=== PATIENT | female | born 1975 | race Caucasian/White ===

== ENCOUNTER 2017-10-30 20:58 | Inpatient (IN) | payer OTHER ==
[~2017-10-30] VITALS: Ht 160 cm; Wt 80.7 kg
--- OUTSIDE RECORDS SUMMARY | ~2017-10-30 | XMS ---
Demographics + + + | Address | [address] | | | [address] | | | [place] [address] | + + + | Preferred Language | Unknown | + + + | Marital Status | Unknown | + + + | Restoration Affiliation | Unknown | + + + | Race | Unknown | + + + | Ethnic Group | Unknown | + + + Author + + + | Author | [facility] | + + + | Organization | [facility] | + + + | Address | [address] | | | [place] [address] | + + + | Phone | | + + + Care Team Providers + + + + | Care Wet Press Tender Name | Role | Phone | + + + + Unavailable | Unavailable | + + + + PROBLEMS +---------+ + + +--------+ + + | Type | Condition | ICD9-CM | [id number] | Onset | Condition | SNOMED | | | | Code | Code | Dates | Status | Code | +---------+ + + +--------+ + + | Problem | Tobacco | | Z72.0 | | Active | 381624350 | | | use | | | | | | +---------+ + + +--------+ + + | Problem | Chronic | M54.16 | | | Active | 955655960 | | | left | | | | | | | | lumbar | | | | | | | | radiculopa | | | | | | | | thy | | | | | | +---------+ + + +--------+ + + | Problem | Obesity | | E66.9 | | Active | 682473335 | +---------+ + + +--------+ + + | Problem | Chronic | 338.4 | | | Active | 889540914 | | | pain | | | | | | | | associated | | | | | | | | with | | | | | | | | significan | | | | | | | | t | | | | | | | | psychosoci | | | | | | | | al | | | | | | | | dysfunctio | | | | | | | | n | | | | | | +---------+ + + +--------+ + + | Problem | Generalize | 300.02 | | | Active | 08241393 | | | d anxiety | | | | | | | | disorder | | | | | | +---------+ + + +--------+ + + | Problem | Bipolar | 296.40 | | | Active | 06182419 | | | affective | | | | | | | | disorder, | | | | | | | | manic | | | | | | +---------+ + + +--------+ + + | Problem | Migraine | G43.009 | | | Active | 712394360 | | | headache | | | | | | | | without | | | | | | | | aura | | | | | | +---------+ + + +--------+ + + | Problem | Peripheral | | R60.9 | | Active | 39940976 | | | edema | | | | | | +---------+ + + +--------+ + + | Problem | Sinus | I49.8 | | | Active | 19765358 | | | arrhythmia | | | | | | +---------+ + + +--------+ + + | Problem | Hepatitis | | B19.20 | | Active | 09395979 | | | C | | | | | | +---------+ + + +--------+ + + | Problem | History of | Z86.14 | | | Active | 382243317 | | | MRSA | | | | | | | | infection | | | | | | +---------+ + + +--------+ + + | Problem | History of | Z87.898 | | | Active | | | | prolonged | | | | | | | | Q-T | | | | | | | | interval | | | | | | | | on ECG | | | | | | +---------+ + + +--------+ + + | Problem | BMI | Z68.32 | | | Active | 833720233 | | | 32.0-32.9, | | | | | | | | adult | | | | | | +---------+ + + +--------+ + + ALLERGIES + + + + +--------+ | Substance | Reaction | Event Type | Date | Status | + + + + +--------+ | Compazine | anxiety | Drug Allergy | May, | Active | + + + + +--------+ | phenergan | anxiety | Drug Allergy | May, | Active | + + + + +--------+ | Zofran | anxiety | Drug Allergy | May, | Active | + + + + +--------+ | Reglan | anxiety | Drug Allergy | May, | Active | + + + + +--------+ SOCIAL HISTORY No smoking Hx information available PLAN OF CARE + +---------+ | Activity | Details | + +---------+ +---+ | | +---+ + + + | Follow Up | 2-3 months Reason:null | + + + | Pending Test | TSH | + + + | Pending Test | CBC With Differential/Platelet | + + + | Pending Test | PTT, Activated | + + + | Pending Test | Comp. Metabolic Panel (14) | + + + | Pending Test | Lipid Panel | + + + | Pending Test | Hepatitis C Genotype | + + + | Pending Test | Protime | + + + | Pending Test | Hepatitis C RNA and Quant (R-PCR) | + + + VITAL SIGNS + + + + | Height | 63 in | 2017-06-11 | + + + + | Weight | 182.6 lbs | 2017-06-11 | + + + + | BMI | 32.34 kg/m2 | 2017-06-11 | + + + + | Heart Rate | 86 /min | 2017-06-11 | + + + + | Blood pressure systolic | 110 mm Hg | 2017-06-11 | + + + + | Blood pressure diastolic | 72 mm Hg | 2017-06-11 | + + + + MEDICATIONS + + +---------+ + + + +--------+ | Medicati | Instruct | Dosage | Frequenc | Start | End Date | Duration | Status | | on | ions | | y | Date | | | | + + +---------+ + + + +--------+ | Advil | Orally | | | | | | Active | | Allergy | prn | | | | | | | | & | | | | | | | | | Congesti | | | | | | | | | on | | | | | | | | | 4-10-200 | | | | | | | | | MG | | | | | | | | + + +---------+ + + + +--------+ | Gabapent | Orally | 1 | | Mar, | | 30 | Active | | in 300 | qHS | capsule | | 2016 | | day(s) | | | MG | | | | | | | | + + +---------+ + + + +--------+ RESULTS No Results PROCEDURES + + + + + | Procedure | Date Ordered | Related Diagnosis | Body Site | + + + + + | Est Level III | Jun 11, 2017 | | | | Intermediate | | | | + + + + + | DSCHRG MED/CURRENT | Jun 11, 2017 | | | | MED MERGE | | | | + + + + + | DOC MEDS VERIFIED | Jun 11, 2017 | | | | W/PT OR RE | | | | + + + + + IMMUNIZATIONS No Known Immunizations"
--- OUTSIDE RECORDS SUMMARY | ~2017-10-30 | XMS ---
Demographics + + + | Address | [address] | | | [address] | | | [place] [address] | + + + | Preferred Language | Unknown | + + + | Marital Status | Unknown | + + + | Quaker Affiliation | Unknown | + + + | Race | Unknown | + + + | Ethnic Group | Unknown | + + + Author + + + | Author | [facility] | + + + | Organization | [facility] | + + + | Address | [address] | | | [place] [address] | + + + | Phone | | + + + Care Team Providers + + + + | Care Director Equipment Name | Role | Phone | + + + + Unavailable | Unavailable | + + + + PROBLEMS +---------+ + + +--------+ + + | Type | Condition | ICD9-CM | [id number] | Onset | Condition | SNOMED | | | | Code | Code | Dates | Status | Code | +---------+ + + +--------+ + + | Problem | Tobacco | | Z72.0 | | Active | 259422111 | | | use | | | | | | +---------+ + + +--------+ + + | Problem | Chronic | M54.16 | | | Active | 988793626 | | | left | | | | | | | | lumbar | | | | | | | | radiculopa | | | | | | | | thy | | | | | | +---------+ + + +--------+ + + | Problem | Obesity | | E66.9 | | Active | 712228300 | +---------+ + + +--------+ + + | Problem | Chronic | 338.4 | | | Active | 474121752 | | | pain | | | [...] | 300.02 | | | Active | 64912630 | | | d anxiety | | | | | | | | disorder | | | | | | +---------+ + + +--------+ + + | Problem | Bipolar | 296.40 | | | Active | 92489639 | | | affective | | | | | | | | disorder, | | | | | | | | manic | | | | | | +---------+ + + +--------+ + + | Problem | Migraine | G43.009 | | | Active | 044561339 | | | headache | | | | | | | | without | | | | | | | | aura | | | | | | +---------+ + + +--------+ + + | Problem | Peripheral | | R60.9 | | Active | 04015355 | | | edema | | | | | | +---------+ + + +--------+ + + | Problem | Sinus | I49.8 | | | Active | 19413862 | | | arrhythmia | | | | | | +---------+ + + +--------+ + + | Problem | Hepatitis | | B19.20 | | Active | 92383134 | | | C | | | | | | +---------+ + + +--------+ + + | Problem | History of | Z86.14 | | | Active | 317864535 | | | MRSA | | | [...] | Z68.32 | | | Active | 566218667 | | | 32.0-32.9, | | | | | | | | adult | | | | | | +---------+ + + +--------+ + + ALLERGIES Unknown Allergies SOCIAL HISTORY No smoking Hx information available PLAN OF CARE VITAL SIGNS MEDICATIONS Unknown Medications RESULTS No Results PROCEDURES No Known procedures IMMUNIZATIONS No Known Immunizations"
--- OUTSIDE RECORDS SUMMARY | ~2017-10-30 | XMS ---
Demographics + + + | Address | [address] | | | [address] | | | [place] [address] | + + + | Preferred Language | Unknown | + + + | Marital Status | Unknown | + + + | Zoroastrian Affiliation | Unknown | + + + | Race | Unknown | + + + | Ethnic Group | Unknown | + + + Author + + + | Author | [facility] | + + + | Organization | [facility] | + + + | Address | [address] | | | [place] [address] | + + + | Phone | | + + + Care Team Providers + + + + | Care Meat Wrapper Name | Role | Phone | + + + + Unavailable | Unavailable | + + + + PROBLEMS +---------+ + + +--------+ + + | Type | Condition | ICD9-CM | [id number] | Onset | Condition | SNOMED | | | | Code | Code | Dates | Status | Code | +---------+ + + +--------+ + + | Problem | Bipolar | 296.40 | | | Active | 19218761 | | | affective | | | | | | | | disorder, | | | | | | | | manic | | | | | | +---------+ + + +--------+ + + | Problem | Tobacco | | Z72.0 | | Active | 175074040 | | | use | | | | | | +---------+ + + +--------+ + + | Problem | Migraine | G43.009 | | | Active | 042799716 | | | headache | | | | | | | | without | | | | | | | | aura | | | | | | +---------+ + + +--------+ + + | Problem | Chronic | 338.4 | | | Active | 790638778 | | | pain | | | [...] | 300.02 | | | Active | 63438221 | | | d anxiety | | [...] | Z68.32 | | | Active | 620635272 | | | 32.0-32.9, | | | | | | | | adult | | | | | | +---------+ + + +--------+ + + | Problem | Chronic | M54.16 | | | Active | 515361063 | | | left | | | | | | | | lumbar | | | | | | | | radiculopa | | | | | | | | thy | | | | | | +---------+ + + +--------+ + + | Problem | Obesity | | E66.9 | | Active | 235665545 | +---------+ + + +--------+ + + | Problem | Hepatitis | | B19.20 | | Active | 80463004 | | | C | | | | | | +---------+ + + +--------+ + + | Problem | History of | Z86.14 | | | Active | 449981910 | | | MRSA | | | | | | | | infection | | | | | | +---------+ + + +--------+ + + ALLERGIES + + + + +--------+ | Substance | Reaction | Event Type | Date | Status | + + + + +--------+ | Compazine | anxiety | Drug Allergy | Mar, | Active | + + + + +--------+ | phenergan | anxiety | Drug Allergy | Mar, | Active | + + + + +--------+ | Zofran | anxiety | Drug Allergy | Mar, | Active | + + + + +--------+ | Reglan | anxiety | Drug Allergy | Mar, | Active | + + + + +--------+ SOCIAL HISTORY No smoking Hx information available PLAN OF CARE + +---------+ | Activity | Details | + +---------+ +---+ | | +---+ + + + | Follow Up | 04/15 Reason:null | + + + VITAL SIGNS + + + + | Height | 63 in | 2017-04-09 | + + + + | Weight | 181.0 lbs | 2017-04-09 | + + + + | BMI | 32.06 kg/m2 | 2017-04-09 | + + + + | Temperature | 98.2 degrees Fahrenheit | 2017-04-09 | + + + + | Heart Rate | 89 /min | 2017-04-09 | + + + + | Blood pressure systolic | 122 mm Hg | 2017-04-09 | + + + + | Blood pressure diastolic | 84 mm Hg | 2017-04-09 | + + + + MEDICATIONS + + + + + + + +--------+ | Medicati | Instruct | Dosage | Frequenc | Start | End Date | Duration | Status | | on | ions | | y | Date | | | | + + + + + + + +--------+ | Rabies | Intramus | as | | | | | Active | | Vaccine, | cular #3 | directed | | | | | | | PCEC - | dose | | | | | | | + + + + + + + +--------+ | Bactrim | Orally | 1 tablet | 12h | 12 Cam, | 22 Cam, | 10 | Active | | DS | every 12 | | | 2016 | 2016 | day(s) | | | 800-160 | hrs | | | | | | | | MG | | | | | | | | + + + + + + + +--------+ | Metronid | Orally | 1 tablet | 12h | 16 Mar, | Mar, | 7 day(s) | Active | | azole | bid | | | 2016 | 2016 | | | | 500 MG | | | | | | | | + + + + + + + +--------+ | Diflucan | Orally | 1 tablet | | | | 1 days | Active | | 150 MG | Once, | | | | | | | | | repeat | | | | | | | | | in 3 | | | | | | | | | days | | | | | | | + + + + + + + +--------+ | Hydrocod | Orally | 1 tablet | | 08 Mar, | 17 Mar, | 5 days | Active | | one-Acet | TID PRN | | | 2016 | 2016 | | | | aminophe | severe | | | | | | | | n 5-325 | pain | | | | | | | | MG | | | | | | | | + + + + + + + +--------+ | Advil | [...] | | | | | + + + + + + + +--------+ RESULTS No Results PROCEDURES + + + + + | Procedure | Date Ordered | Related Diagnosis | Body Site | + + + + + | Rabies, | April 09, 2017 | | | | intramuscular | | | | + + + + + | Est Level II | April 09, 2017 | | | | Limited | | | | + + + + + | DOC MEDS VERIFIED | April 09, 2017 | | | | W/PT OR RE | | | | + + + + + | DSCHRG MED/CURRENT | April 09, 2017 | | | | MED MERGE | | | | + + + + + IMMUNIZATIONS + + + + + | Vaccine | Route | Administration Date | Status | + + + + + | Rabies, | IM Intramuscular | April 09, 2017 | Administered | | intramuscular | | | | + + + + +"
--- OUTSIDE RECORDS SUMMARY | ~2017-10-30 | XMS ---
Demographics + + + | Address | [address] | | | [address] | | | [place] [address] | + + + | Preferred Language [...] | + + + | Organization | [facility] | + + + | Address | [address] | | | [place] [address] | + + + | Phone | | + + + Care Team Providers + + + + | Care Preparation Plant Repairer Name | Role | Phone | + + + + Unavailable | Unavailable | + + + + PROBLEMS +---------+ + + +--------+ + + | Type | Condition | ICD9-CM | [id number] | Onset | Condition | SNOMED | | | | Code | Code | Dates | Status | Code | +---------+ + + +--------+ + + | Problem | Tobacco | | Z72.0 | | Active | 937706101 | | | use | | | | | | +---------+ + + +--------+ + + | Problem | Chronic | M54.16 | | | Active | 333701269 | | | left | | | | | | | | lumbar | | | | | | | | radiculopa | | | | | | | | thy | | | | | | +---------+ + + +--------+ + + | Problem | Obesity | | E66.9 | | Active | 306676068 | +---------+ + + +--------+ + + | Problem | Chronic | 338.4 | | | Active | 461927310 | | | pain | | | [...] | 300.02 | | | Active | 29379686 | | | d anxiety | | | | | | | | disorder | | | | | | +---------+ + + +--------+ + + | Problem | Bipolar | 296.40 | | | Active | 54943525 | | | affective | | | | | | | | disorder, | | | | | | | | manic | | | | | | +---------+ + + +--------+ + + | Problem | Migraine | G43.009 | | | Active | 059232607 | | | headache | | | | | | | | without | | | | | | | | aura | | | | | | +---------+ + + +--------+ + + | Problem | Peripheral | | R60.9 | | Active | 81647475 | | | edema | | | | | | +---------+ + + +--------+ + + | Problem | Sinus | I49.8 | | | Active | 16240977 | | | arrhythmia | | | | | | +---------+ + + +--------+ + + | Problem | Hepatitis | | B19.20 | | Active | 66440061 | | | C | | | | | | +---------+ + + +--------+ + + | Problem | History of | Z86.14 | | | Active | 803833150 | | | MRSA | | | [...] | Z68.32 | | | Active | 840565690 | | | 32.0-32.9, | | | | | | | | adult | | | | | | +---------+ + + +--------+ + + ALLERGIES Unknown Allergies SOCIAL HISTORY No smoking Hx information available PLAN OF CARE VITAL SIGNS MEDICATIONS Unknown Medications RESULTS No Results PROCEDURES No Known procedures IMMUNIZATIONS No Known Immunizations"
--- OUTSIDE RECORDS SUMMARY | ~2017-10-30 | XMS ---
Demographics + + + | Address | [address] | | | [address] | | | [place] [address] | + + + | Preferred Language | Unknown | + + + | Marital Status | Unknown | + + + | Druze Affiliation | Unknown | + + + | Race | Unknown | + + + | Ethnic Group | Unknown | + + + Author + + + | Author | [facility] | + + + | Organization | [facility] | + + + | Address | [address] | | | [place] [address] | + + + | Phone | | + + + Care Team Providers + + + + | Care Folder And Notcher Name | Role | Phone | + + + + Unavailable | Unavailable | + + + + PROBLEMS +---------+ + + +--------+ + + | Type | Condition | ICD9-CM | [id number] | Onset | Condition | SNOMED | | | | Code | Code | Dates | Status | Code | +---------+ + + +--------+ + + | Problem | Bipolar | 296.40 | | | Active | 59533504 | | | affective | | | | | | | | disorder, | | | | | | | | manic | | | | | | +---------+ + + +--------+ + + | Problem | Tobacco | | Z72.0 | | Active | 070409411 | | | use | | | | | | +---------+ + + +--------+ + + | Problem | Migraine | G43.009 | | | Active | 525172717 | | | headache | | | | | | | | without | | | | | | | | aura | | | | | | +---------+ + + +--------+ + + | Problem | Chronic | 338.4 | | | Active | 647554757 | | | pain | | | [...] | 300.02 | | | Active | 91238641 | | | d anxiety | | [...] | Z68.32 | | | Active | 923905736 | | | 32.0-32.9, | | | | | | | | adult | | | | | | +---------+ + + +--------+ + + | Problem | Chronic | M54.16 | | | Active | 745400583 | | | left | | | | | | | | lumbar | | | | | | | | radiculopa | | | | | | | | thy | | | | | | +---------+ + + +--------+ + + | Problem | Obesity | | E66.9 | | Active | 179042558 | +---------+ + + +--------+ + + | Problem | Hepatitis | | B19.20 | | Active | 28879465 | | | C | | | | | | +---------+ + + +--------+ + + | Problem | History of | Z86.14 | | | Active | 767050126 | | | MRSA | | | [...] + + + | Follow Up | prn Reason:null | + + + VITAL SIGNS + + + + | Height | 63 in | 2017-04-15 | + + + + | Weight | 180.8 lbs | 2017-04-15 | + + + + | BMI | 32.02 kg/m2 | 2017-04-15 | + + + + | Temperature | 98.7 degrees Fahrenheit | 2017-04-15 | + + + + | Heart Rate | 87 /min | 2017-04-15 | + + + + | Blood pressure systolic | 115 mm Hg | 2017-04-15 | + + + + | Blood pressure diastolic | 78 mm Hg | 2017-04-15 | + + + + MEDICATIONS + [...] every 12 | | | 2016 | 2017 | day(s) | | | 800-160 | hrs | | | | | | | | MG | | | | | | | | + + + + + + + +--------+ | Metronid | Orally | 1 tablet | 12h | 16 Cam, | Mar, | 7 day(s) | Active [...] | Intramus | as | | | Mar, | NOW | Active | | Vaccine, | cular #4 | directed | | | 2016 | | | | PCEC - | [...] + + + | Rabies, | April 15, 2017 | | | | intramuscular | | | | + + + + + | Est Level III | April 15, 2017 | | | | Intermediate | | | | + + + + + | DOC MEDS VERIFIED | April 15, 2017 | | | | W/PT OR RE | | | | + + + + + | DSCHRG MED/CURRENT | April 15, 2017 | | | | MED MERGE | | | | + + + + + IMMUNIZATIONS + + + + + | Vaccine | Route | Administration Date | Status | + + + + + | Rabies, | IM Intramuscular | April 15, 2017 | Administered | | intramuscular | | | | + + + + +"
--- OUTSIDE RECORDS SUMMARY | ~2017-10-30 | XMS ---
Demographics + + + | Address | [address] | | | [address] | | | [place] [address] | + + + | Preferred Language | Unknown | + + + | Marital Status | Unknown | + + + | Jew Affiliation | Unknown | + + + | Race | Unknown | + + + | Ethnic Group | Unknown | + + + Author + + + | Author | [facility] | + + + | Organization | [facility] | + + + | Address | [address] | | | [place] [address] | + + + | Phone | | + + + Care Team Providers + + + + | Care Foreclosure Field Inspector Name | Role | Phone | + + + + Unavailable | Unavailable | + + + + PROBLEMS +---------+ + + +--------+ + + | Type | Condition | ICD9-CM | [id number] | Onset | Condition | SNOMED | | | | Code | Code | Dates | Status | Code | +---------+ + + +--------+ + + | Problem | Bipolar | 296.40 | | | Active | 83870156 | | | affective | | | | | | | | disorder, | | | | | | | | manic | | | | | | +---------+ + + +--------+ + + | Problem | Tobacco | | Z72.0 | | Active | 677370854 | | | use | | | | | | +---------+ + + +--------+ + + | Problem | Migraine | G43.009 | | | Active | 334083408 | | | headache | | | | | | | | without | | | | | | | | aura | | | | | | +---------+ + + +--------+ + + | Problem | Chronic | 338.4 | | | Active | 159077676 | | | pain | | | [...] | 300.02 | | | Active | 06762272 | | | d anxiety | | [...] | Z68.32 | | | Active | 192705085 | | | 32.0-32.9, | | | | | | | | adult | | | | | | +---------+ + + +--------+ + + | Problem | Chronic | M54.16 | | | Active | 028631168 | | | left | | | | | | | | lumbar | | | | | | | | radiculopa | | | | | | | | thy | | | | | | +---------+ + + +--------+ + + | Problem | Obesity | | E66.9 | | Active | 365892654 | +---------+ + + +--------+ + + | Problem | Hepatitis | | B19.20 | | Active | 01969457 | | | C | | | | | | +---------+ + + +--------+ + + | Problem | History of | Z86.14 | | | Active | 978753110 | | | MRSA | | | [...] + + + | Follow Up | 4 Weeks Reason:null | + + + | Pending Test | EKG | + + + VITAL SIGNS + + + + | Height | 63 in | 2017-03-31 | + + + + | Weight | 182.2 lbs | 2017-03-31 | + + + + | BMI | 32.27 kg/m2 | 2017-03-31 | + + + + | Temperature | 97.7 degrees Fahrenheit | 2017-03-31 | + + + + | Heart Rate | 103 /min | 2017-03-31 | + + + + | Blood pressure systolic | 128 mm Hg | 2017-03-31 | + + + + | Blood pressure diastolic | 69 mm Hg | 2017-03-31 | + + + + MEDICATIONS + + + + + + + +--------+ | Medicati | Instruct | Dosage | Frequenc | Start | End Date | Duration | Status | | on | ions | | y | Date | | | | + + + + + + + +--------+ | Nicoderm | Transder | 1 patch | 24h | 10 February, | 7 Mar, | 28 days | Active | | CQ 7 | mal Once | to skin | | 2016 | 2016 | | | | MG/24HR | a day | | | | | | | + + + + + + + +--------+ | Advil | | | | | | | Active | | Allergy | | | | | | | [...] + + + + + +--------+ | Gabapent | Orally | 1 | | 07 Mar, | | 30 | Active | | in 300 | qHS | capsule | | 2016 | | day(s) | | | MG | | | | | | | | + + + + + + + +--------+ | Nicoderm | Transder | 1 patch | 24h | | 7 Mar, | 28 | Active | | CQ 21 | mal Once | to skin | | | 2016 | day(s) | | | MG/24HR | a day | | | | | | | + + + + + + + +--------+ | Nicoderm | Transder | 1 patch | 24h | 10 February, | 7 Mar, | 28 days | Active | | CQ 14 | mal Once | to skin | | 2016 | 2016 | | | | MG/24HR | a day | | | | | | | + + + + + + + +--------+ RESULTS No Results PROCEDURES + + + + + | Procedure | Date Ordered | Related Diagnosis | Body Site | + + + + + | Est Level III | March 31, 2017 | | | | Intermediate | | | | + + + + + | DSCHRG MED/CURRENT | March 31, 2017 | | | | MED MERGE | | | | + + + + + | DOC MEDS VERIFIED | March 31, 2017 | | | | W/PT OR RE | | | | + + + + + IMMUNIZATIONS No Known Immunizations"
--- OUTSIDE RECORDS SUMMARY | ~2017-10-30 | XMS ---
Demographics + + + | Address | [address] | | | [address] | | | [place] [address] | + + + | Preferred Language | Unknown | + + + | Marital Status | Unknown | + + + | Buddhist Affiliation | Unknown | + + + | Race | Unknown | + + + | Ethnic Group | Unknown | + + + Author + + + | Author | [facility] | + + + | Organization | [facility] | + + + | Address | [address] | | | [place] [address] | + + + | Phone | | + + + Care Team Providers + + + + | Care Sewer And Inspector Name | Role | Phone | + + + + Unavailable | Unavailable | + + + + PROBLEMS +---------+ + + +--------+ + + | Type | Condition | ICD9-CM | [id number] | Onset | Condition | SNOMED | | | | Code | Code | Dates | Status | Code | +---------+ + + +--------+ + + | Problem | Tobacco | | Z72.0 | | Active | 557871946 | | | use | | | | | | +---------+ + + +--------+ + + | Problem | Chronic | M54.16 | | | Active | 001094330 | | | left | | | | | | | | lumbar | | | | | | | | radiculopa | | | | | | | | thy | | | | | | +---------+ + + +--------+ + + | Problem | Obesity | | E66.9 | | Active | 901349936 | +---------+ + + +--------+ + + | Problem | Chronic | 338.4 | | | Active | 107315150 | | | pain | | | [...] | 300.02 | | | Active | 62385813 | | | d anxiety | | | | | | | | disorder | | | | | | +---------+ + + +--------+ + + | Problem | Bipolar | 296.40 | | | Active | 55557642 | | | affective | | | | | | | | disorder, | | | | | | | | manic | | | | | | +---------+ + + +--------+ + + | Problem | Migraine | G43.009 | | | Active | 178327780 | | | headache | | | | | | | | without | | | | | | | | aura | | | | | | +---------+ + + +--------+ + + | Problem | Peripheral | | R60.9 | | Active | 48159810 | | | edema | | | | | | +---------+ + + +--------+ + + | Problem | Sinus | I49.8 | | | Active | [id number] | | | arrhythmia | | | | | | +---------+ + + +--------+ + + | Problem | Hepatitis | | B19.20 | | Active | [id number] | | | C | | | | | | +---------+ + + +--------+ + + | Problem | History of | Z86.14 | | | Active | [id number] | | | MRSA | | | [...] | Z68.32 | | | Active | [id number] | | | 32.0-32.9, | | | | | | | | adult | | | | | | +---------+ + + +--------+ + + ALLERGIES Unknown Allergies SOCIAL HISTORY No smoking Hx information available PLAN OF CARE VITAL SIGNS MEDICATIONS Unknown Medications RESULTS No Results PROCEDURES No Known procedures IMMUNIZATIONS No Known Immunizations"
--- OUTSIDE RECORDS SUMMARY | ~2017-10-30 | XMS ---
Demographics + + + | Address | [address] | | | [address] | | | [place] [address] | + + + | Preferred Language | Unknown | + + + | Marital Status | Unknown | + + + | Yarsanism Affiliation | Unknown | + + + | Race | Unknown | + + + | Ethnic Group | Unknown | + + + Author + + + | Author | [facility] | + + + | Organization | [facility] | + + + | Address | [address] | | | [place] [address] | + + + | Phone | | + + + Care Team Providers + + + + | Care Market Development Specialist Name | Role | Phone | + + + + Unavailable | Unavailable | + + + + PROBLEMS +---------+ + + +--------+ + + | Type | Condition | ICD9-CM | [id number] | Onset | Condition | SNOMED | | | | Code | Code | Dates | Status | Code | +---------+ + + +--------+ + + | Problem | Bipolar | 296.40 | | | Active | [id number] | | | affective | | | | | | | | disorder, | | | | | | | | manic | | | | | | +---------+ + + +--------+ + + | Problem | Tobacco | | Z72.0 | | Active | [id number] | | | use | | | | | | +---------+ + + +--------+ + + | Problem | Migraine | G43.009 | | | Active | [id number] | | | headache | | | | | | | | without | | | | | | | | aura | | | | | | +---------+ + + +--------+ + + | Problem | Chronic | 338.4 | | | Active | 131494835 | | | pain | | | [...] | 300.02 | | | Active | 57074188 | | | d anxiety | | [...] | Z68.32 | | | Active | 361544648 | | | 32.0-32.9, | | | | | | | | adult | | | | | | +---------+ + + +--------+ + + | Problem | Chronic | M54.16 | | | Active | [id number] | | | left | | | | | | | | lumbar | | | | | | | | radiculopa | | | | | | | | thy | | | | | | +---------+ + + +--------+ + + | Problem | Obesity | | E66.9 | | Active | [id number] | +---------+ + + +--------+ + + | Problem | Hepatitis | | B19.20 | | Active | 70241356 | | | C | | | | | | +---------+ + + +--------+ + + | Problem | History of | Z86.14 | | | Active | [id number] | | | MRSA | | | | | | | | infection | | | | | | +---------+ + + +--------+ + + ALLERGIES Unknown Allergies SOCIAL HISTORY No smoking Hx information available PLAN OF CARE + +---------+ | Activity | Details | + +---------+ +---+ | | +---+ + + + | Follow Up | 04/04/17 Reason:null | + + + VITAL SIGNS + + + + | Height | 63 in | 2017-04-01 | + + + + | Weight | 180.8 lbs | 2017-04-01 | + + + + | BMI | 32.02 kg/m2 | 2017-04-01 | + + + + | Temperature | 97.4 degrees Fahrenheit | 2017-04-01 | + + + + | Heart Rate | 73 /min | 2017-04-01 | + + + + | Blood pressure systolic | 116 mm Hg | 2017-04-01 | + + + + | Blood pressure diastolic | 75 mm Hg | 2017-04-01 | + + + + MEDICATIONS + + + + + + + +--------+ | Medicati | Instruct | Dosage | Frequenc | Start | End Date | Duration | Status | | on | ions | | y | Date | | | | + + + + + + + +--------+ | Gabapent | Orally | 1 | | 07 Cam, | | 30 | Active | | in 300 | qHS | capsule | | 2017 | | day(s) | | | MG | | | | | | | | + + + + + + + +--------+ | Hydrocod | Orally | 1 tablet | | Mar, | 11 Cam, | 3 days | Active | | one-Acet | [...] | + + + + + | Rabies Immune | April 01, 2017 | | | | Globlin | | | | + + + + + | Rabies, | April 01, 2017 | | | | intramuscular | | | | + + + + + | [facility] MED/CURRENT | April 01, 2017 | | | | MED MERGE | | | | + + + + + | Est Level III | April 01, 2017 | | | | Intermediate | | | | + + + + + | DOC MEDS VERIFIED | April 01, 2017 | | | | W/PT OR RE | | | | + + + + + IMMUNIZATIONS + + + + + | Vaccine | Route | Administration Date | Status | + + + + + | Rabies, | IM Intramuscular | April 01, 2017 | Administered | | intramuscular | | | | + + + + + | Rabies Immune | IM Intramuscular | April 01, 2017 | Administered | | Globlin | | | | + + + + +"
[~2017-10-30 20:58] MED LIST: ADVIL100 MG PO; AUGMENTIN 875-1 EACH PO; CEPHALEXIN500 MG PO; DICLOFENAC SODI75 MG PO; DOXYCYCLINE HY100 MG PO; KEFLEX500 MG PO; KLONOPIN1 MG PO; NEURONTIN800 MG PO; PAXIL40 MG PO; PREDNISONE20 MG PO; PROVENTIL HFA6.7 GM INH; SUDAFED 12 HOU120 MG PO; TRAZODONE HCL150 MG PO
--- NOTE | 2017-10-31 02:00 | NUR ---
PATIENT TO FLOOR VIA GURNEY FROM ED. PATIENT TRANSFERED TO BED WITH SBA. REPORTS 6/10 PAIN IN RUQ OF ABD, PRN MORHPINE GIVEN. DENIES FURTHER NEEDS AT THIS TIME. ADMIT, ASSESSMENT, VITALS DONE. ORIENTED PATIENT TO ROOM, INSTRUCTED HOW TO USE CALL LIGHT. CALL LIGHT WITHIN REACH. ALL ORDERS IN PLACE.
--- NOTE | 2017-10-31 02:05 | NUR ---
42YR OLD WOMAN ADMITTED FROM ER VIA STRETCHER TO ROOM 122, PT IS ALERT, ORIENTED, SL X2 TAPED SECURELY, ORIENTED TO ROOM AND CALL LIGHT, ORDERS NOTED.
--- NOTE | 2017-10-31 04:20 | NUR ---
PATIENT RESTING COMFORTABLY IN BED, BREATHING IS EVEN AND UNLABORED. RESPIRATORY RATE IS 16/MIN. FLACC SCORE OF 0, NO SIGNS OF DISTRESS. CALL LIGHT WITHIN REACH. ALL ORDERS IN PLACE.
--- NOTE | 2017-10-31 06:39 | NUR ---
AWAKE, SBA INTO BATHROOM TO VOID, DENIES NAUSEA BUT C/O INCREASING PAIN IN RUQ. MORPHINE 4MG IV GIVEN. IVF PATENT. REMAINS NPO. CALL LIGHT IN EASY REACH.
--- NOTE | 2017-10-31 07:00 | NUR ---
HANDOFF REPORT RECEIVED FROM PLACEMENT COORDINATOR RN.
--- NOTE | 2017-10-31 07:44 | NUR ---
PATENT WAS SLEEPING, SHE DIDNT WAKE UP, SO I LET HER SLEEP.
--- NOTE | 2017-10-31 08:35 | NUR ---
PT RESTING IN BED. PT COMPLAINT OF PAIN /, REQUESTING PAIN MEDICATION, GIVEN 4 MG IV MORPHINE PER ORDER. PT COMPLAINT OF DRY MOUTH, PROVIDED MOUTH SWABS AND CHAPSTICK. PT DENIES NAUSEA, BOWEL TONES ACTIVE. PT ON ROOM AIR, LUNG SOUNDS CLEAR. SCDS IN PLACE, CMS INTACT. PT ASKING QUESTIONS ABOUT SURGERY, DISCUSSED PLAN OF CARE. IV FLUIDS INFUSING LR AT 125 ML/HR. PT NPO. PT DENIES OTHER NEEDS AT THIS TIME.
--- NOTE | 2017-10-31 09:45 | NUR ---
PT RESTIGN IN BED. RATING PAIN 5/10. PT DENIES NEEDS AT THIS TIME.
--- NOTE | 2017-10-31 12:49 | NUR ---
PT SLEEPING, LEFT UNDISTURBED.
--- NOTE | 2017-10-31 13:21 | NUR ---
PT AWAKE, REQUESTING PAIN MEDICATION, RATING PAIN 6-7/10 TO ABD. GIVEN 4 MG IV MORPHINE. PT ON ROOM AIR, LUNG SOUNDS CLEAR. PT HYPOTENSIVE, STSTOLIC BP 91, PT STATES SHE NORMALLY HAS LOW BP. BOWEL TONES ACTIVE. PT DENIES OTHER NEEDS AT THIS TIME.
--- NOTE | 2017-10-31 14:30 | NUR ---
MD TO BEDSIDE TO EVALUATE PT. PLAN FOR SURGERY THIS AFTERNOON.
--- NOTE | 2017-10-31 14:36 | NUR ---
PT WAS PREPPED FOR GALLBLADDER SURGERY, AND DID THE DEMETRI MORROW
--- NOTE | 2017-10-31 15:02 | NUR ---
PATIENT TO SURGERY, REPORT GIVEN TO DOYLE, OR NURSE. UPDATED PRIMARY CARE NURSE SMOOTH.
--- NOTE | 2017-10-31 16:24 | NUR ---
10/31/17 1624 Teresa Reina 1620: PT WAKES QUICKLY AND PULLS OXYGEN MASK OFF HER FACE. ORAL AIRWAY IS REMOVED. 1623: SNORING HEARD WHEN SLEEPING. PT REMOVES OXYGEN MASK AND IS SCRATCHING HER NOSE. PT REASSURES EASILY.
[2017-10-31] MEDS ORDERED: NORCO 5-325 TA1 EACH PO (16:25)
[2017-10-31] MEDS ORDERED: MOTRIN IB200 MG PO (16:25)
[2017-10-31] MEDS ORDERED: TYLENOL325 MG PO (16:26)
[2017-10-31] MEDS ORDERED: NICODERM CQ1 EAC1 TD (16:27)
--- NOTE | 2017-10-31 17:40 | NUR ---
PT RECEIVED FROM PACU AT 1715. PT TRANSFERED SELF TO BED. PT COMPLAINT OPF PAIN, CRYING, STATING "IT HURTS SO BAD". VSS. PT ON 2L NC, O2 SATS 100%, LUNG SOUNDS CLEAR. PT GIVEN 4 MG IV MORPHINE. BOWEL TONES HYPOACTIVE, DENIES NAUSEA. LAP SITE X4 WITH SMALL AMOUNT OF BLOODY DRAINAGE. CMS INTACT, WITHOUT EDEMA. SCDS IN PLACE. LR INFUSING AT 125 ML/HR. PT ASSISTED WITH ORDERING SMALL DINNER. DISCUSSED PAIN MANAGEMENT WITH PT. FAMILY AT BEDSIDE.
--- NOTE | 2017-10-31 18:18 | NUR ---
PT AGITATED, ANXIOUS. PT COMPLAINT OF PAIN TO ABD, RATING PAIN SEVERE, GIVEN 4MG IV MORPHINE. FAMILY AT BEDSIDE, CONSOLING PT. ICE PACK PROVIVED, PT REFUSING STATING "I DONT NEED IT". PT O2 CHE 97% ON 1L, WEANED TO ROOM AIR.
--- NOTE | 2017-10-31 18:24 | NUR ---
PT WENT FOR LAP ROSEMARIE THIS AFTERNOON. PT ON ROOM AIR, LUNG SOUNDS CLEAR, O2 SATS AT 97%. PT BOWEL TONES HYPOACTIVE, DENIES NAUSEA, ATTEMPTED SMALL DINNER. PT CONSISTENTLY RATING PAIN HIGH, GIVEN 4 MG IV MORPHINE X2 SINCE ARRIVING TO FLOOR. IV FLUIDS INFUSING AT LR AT 125 ML/HR. LAP SITE X4 WITH SMALL AMOUNT OF BLOODY DRAINAGE. SCDS IN PLACE.
--- NOTE | 2017-10-31 18:45 | NUR ---
CALLED, RETURNING CALL FROM MESSAGE. PROVIDED UPDATE THAT PT WOULD NOT BE DISCHARGING THIS EVENING DUE TO PAIN AND ANXIETY, DISCUSSED PT CONCERN THAT NORCO WOULD NOT PROVIDE SUFFICIENT PAIN RELIEF. TELEPHONE ORDER TO CHANGE NORCO TO PERCOCET 7.5/325MG 1-2 TAB Q4H PRN FOR PAIN AND TO ADD 1MG IV ATIVAN Q4H PRN FOR ANXIETY, RBVO.
--- NOTE | 2017-10-31 19:10 | NUR ---
PT COMPLAINT OF PAIN, REQUESTING PAIN MEDICATION, GIVEN 1 TAB PERCOCET, AND 600 MG IBUPROFEN. ICE PACK APPLIED TO ABD, PT ENCOURAGED TO CONTIUE BRACING. PT ANXIOUS, PROVIDED 1 MG IV ATIVAN PER ORDER. DISCUSSED PAIN MANAGEMEN. VSS. LAP SITES WITH STERISTRIPS INTACT, SMALL AMOUNT OF BLOODY DRAINAGE, UNCHANGED FROM PREVIOUS ASSESSMENT. PT BOWEL TONES HYPOACTIVE, DENIES NAUSEA, TOLERATING REGULAR DIET.
--- NOTE | 2017-10-31 19:10 | NUR ---
BEDSIDE REPORT RECEIVED FROM OFFGOING RN. MEDICATIONS ADMINISTERED PER PREVIOUS RN NOTE. PT'S FRIEND AT BEDSIDE. PT AGREES TO CALL FOR FURTHER NEEDS.
--- NOTE | 2017-10-31 20:44 | NUR ---
MID LEVEL PRACTITIONER INFORMS EMPLOYEE DEVELOPMENT MANAGER THAT BLOOD PRESENT ON PT'S GOWN. SMALL AMOUNT OF SNAGUINEOUS DRAINAGE PRESENT TO PT'S GOWN, STERI STRIPS DISPLACED FROM INCISION, AND SMALL AMOUNT OF BLOOD DRIED TO PT'S LOWER ABDOMEN BELOW LAP SITE. PT IS VERY ANXIOUS ABOUT BLEEDING, ASKING "IS EVERYTHING OK, IS IT OPEN? IS IT GOING TO HERNIATE?" PT REASSURED. NEW STERISTRIPS PLACED TO LAP SITE, GAUZE PLACED OVER WITH FOAM TAPE, PT TOLERATED WELL. PT UP TO USE BATHROOM, SPLINTS ABD APPROPRIATELY. RATES PIAN 7/10 TO ABD AFTER GETTING TO BATHROOM, STATES "IT HURTS SO BAD". PT STATES SHE THINKS HER FINGER WENT "INTO" HER RLQ LAP SITE. SITE ASSESSED, NO NEW DRAINAGE, NO S/SX OF LAP SITE OPENED. STERI STRIP DISPLACED X 1, REPLACED. PT AGAIN REASSURED. PT ASSESSMENT COMPLETE. BT'S HYPOACTIVE, ABD REMAINS TENDER. PRN PERCOCET X 1 TAB ADMINISTERED FOR PAIN. PT DROWSY, FALLING ASLEEP DURING CONVERSATION POST ASSESSMENT. SAO2 93%, RR 20. CALL LIGHT WITHIN PT'S REACH.
--- NOTE | 2017-10-31 21:36 | NUR ---
IV FLUIDS COMPLETE, HUNG NEW BAG. PT WITH EYES CLOSED,SLIGHT SNORING. O2 PER PULSE OX READING 90 WITH HEART RATE OF 90, ON ROOM AIR. CALL STORY WITHIN REACH.
--- NOTE | 2017-10-31 22:18 | NUR ---
PT RESTING IN BED WITH EYES CLOSED. RESPIRATIONS EVEN AND UNLABORED, RR 20, SA02 93%, NO S/SX OF DISTRESS NOTED. CALL LIGHT WITHIN PT REACH.
--- NOTE | 2017-11-01 00:45 | NUR ---
PT UP TO USE THE BATHROOM WITH CORRECTIONAL SUPERVISOR ASSISTANCE, REPORTS INCREASED PAIN. PT RATES PAIN 7/10. PRN PERCOCET ADMINISTERED. PT REPORTS NAUSEA, REQUESTS BENADRYL. INFORMED PT THAT BENADRYL IS NOT AVAILABLE, ASSESSED WHETHER PT BELIEVES THAT NAUSEA IS BEING BROUGHT ON BY PAIN. SHE STATES, "I'M NOT SURE". DISCUSSION WITH PT ABOUT LETTING PAIN PILL KICK IN TO SEE IF NAUSEA IS CONTROLLED. PT STATES "I'M JUST ANXIOUS, CAN'T I HAVE ATIVAN, I HAD ATIVAN EARLIER." PT BEGINS TO EXPLAIN TO AIRCRAFT LAUNCH AND RECOVERY TECHNICIAN LIST OF PERSONAL PROBLEMS INCLUDING WORK, NOT SEEING HER DAUGHTER, ETC. ENCOURAGED PT TO TRY TO NOT FOCUS ON PROBLEMS WHILE HERE IN THE HOSPITAL. PT STATES AGREEMENT. COOL WASHCLOTH PROVIDED FOR PT'S FOREHEAD. PT STATES, "I'M NOT TRYING TO GET MEDICATIONS". ENCOURAGED PT TO REST, CALL FOR NEEDS. PT STATES AGREEMENT.
--- NOTE | 2017-11-01 00:59 | NUR ---
PT RESTING IN BED WITH EYES CLOSED. SAO2 92%, RESPIRATIONS EVEN AND UNLABORED. PT DOES NOT WAKE WHILE SENIOR POWER PLANT OPERATOR IN DOORWAY. WASH RAG CONTINUES TO BE PRESENT ON PT'S FOREHEAD. CALL LIGHT WITHIN PT REACH.
--- NOTE | 2017-11-01 01:50 | NUR ---
PT REQUESTING BOX LUNCH, STATES SHE WOULD LIKE PATRICK FELICIANO. REPORTS TO JACK PRIZER THAT NAUSEA IS WELL CONTROLLED. BOXED LUNCH PROVIDED.
--- NOTE | 2017-11-01 02:45 | NUR ---
PT RESTING IN BED WITH EYES CLOSED. RESPIRATIONS EVEN AND UNLABORED. SA02 92%. PT DOES NOT WAKE WHILE LABORER ELECTROPLATING IS IN ROOM. CALL LIGHT WITHIN PT REACH.
--- NOTE | 2017-11-01 04:57 | NUR ---
PT RESTING WITH EYES CLOSED, WAKES EASILY. PT ASSESSMENT COMPLETE. ABD SLIGHTLY DISTENDED PER PT, SHE STATES THAT R SIDE OF ABD APPEARS LARGER THAN USUAL. BT'S HYPOACTIVE, ABD TENDER TO TOUCH. STERI STRIPS D/I, NO NEW DRAINAGE NOTED. GAUZE AND TAPE OVER UMBILICAL SITE REMAINS UNCHANGED FROM PREVIOUS ASSESSMENT, C/D/I. PT CONTINUES TO BE ANXIOUS REGARDING RETURNING TO WORK, ENCOURAGED PT TO DISCUSS CONCERNS REGARDING WORK WITH MD. PT ASKS ABOUT IV PAIN MEDICATION, STATES THAT SHE DOESN'T WANT TO "COME DOWN" OFF OF PAIN MEDICATION. EDUCATION PROVIDED. PT RATES PAIN 7-06/03, STATES THAT SHE HAS BEEN SICK WITH A COUGH, AND NOW COUGH IS MAKING ABD HURT. PRN PERCOCET TO BE ADMINISTERED. PT DENIES OTHER C/O AT THIS TIME, DENIES FURTHER NEEDS. CALL LIGHT WITHIN REACH.
--- NOTE | 2017-11-01 05:01 | NUR ---
PT RESTED WELL OFF AND ON THROUGHOUT SHIFT. PAIN WELL CONTROLLED WITH 1 TAB PRN PERCOCET ~ Q 4 HOURS. NAUSEA X 1 RESOLVED WITH COOL WASH CLOTH AND PAIN MEDICATION ADMINISTRATION. LAP SITES TO ABD X 4, UMBILICAL SITE REINFORCED WITH GAUZE AND TAPE. STERI STRIPS D/I, DRIED SANGUINEOUS DRAINAGE PRESENT. PT DOES NOT TOLERATE ICE TO ABD. TOLERATING REGULAR DIET WELL. LR @ 125. 1 PA TO BATHROOM. NO FLATUS OR BM. UO QS. SCD'S IN PLACE.
--- NOTE | 2017-11-01 05:26 | NUR ---
PT UTILIZES CALL LIGHT, REQUESTS TO USE THE BATHROOM. PT SITTING AT BEDSIDE, STATES "I'M SICK TO MY STOMACH". PT COUGHING FREQUENTLY. EXPLAINED TO PT THAT DRY CLEANER BROUGHT PO PAIN MEDICATION PER HER REQUEST, SHE STATES SHE WANTS TO USE BATHROOM FIRST, "IN CASE SHE GETS SICK". PT SITS UP ON TOILET, CONTINUES TO COUGH, SPITTING UP MUCOUS. MUCOUS CLEAR AND FROTHY. PT ASSISTED BACK TO BED. CONTINUES TO STATE THAT SHE IS GOING TO BE SICK, WHILE HAVING CONVERSATION WITH DRY CLEANER ABOUT WORK AND WASHING HANDS FREQUENTLY. ENCOURAGED PT TO TAKE PO PAIN MEDICATION WHILE SHE IS SITTING AT BEDSIDE HAVING CONVERSATION, PT STATES "I NEED TO THROW UP FIRST, I DON'T WANT TO THROW UP MY PAIN PILL". REMINDED PT THAT PAIN PILL HELPED WITH NAUSEA PREVIOUSLY. PT TAKES PAIN MED, BEGINS TO QUESTION TIMING OF PAIN MEDICATION. INFORMED PT THAT SHE HAS BEEN GOING ~4 HOURS BETWEEN PO PAIN MEDICATIONS AND SLEEPING WELL BETWEEN. PT STATES "I HAVE BEEN GOING TOO LONG BETWEEN DOSES OF PAIN MEDS, THAT'S WHY I'M GETTING NAUSEOUS. I SHOULD BE GETTING MEDICATION EVERY 2 HOURS". EDUCATION AND REVIEW OF EMAR PROVIDED TO PT. PT STATES "I'M NOT TRYING TO ARGUE." PT DENIES OTHER NEEDS AT THIS TIME. EMESIS BAG AT BEDSIDE, CALL LIGHT WITHIN REACH.
--- NOTE | 2017-11-01 06:08 | NUR ---
PT RESTING IN BED WITH EYES CLOSED, RESPIRATIONS EVEN AND UNLABORED. SA02 91%. PT DOES NOT WAKE WHILE HYDROGRAPHICAL TECHNICAL OFFICER IN DOORWAY. CALL LIGHT WITHIN PT'S REACH.
--- NOTE | 2017-11-01 08:17 | NUR ---
PATIENT IN BED TALKING ON PHONE.
--- NOTE | 2017-11-01 08:57 | NUR ---
PT AWAKE SITTING UP STRAIGHT IN BED TALKING ON PHONE WITH FRIEND, CONVERSING CALMLY ABOUT TAKING A VACATION SOON. PT HUNG UP WITH FRIEND SOON THIS RN ENTERED ROOM AND IMMEDIATELY STARTED COMPLAINING OF NAUSEA. GRABBED EMESIS BAG AND KEPT SAYING "I'M GONNA THROW UP, I'M DEFINITELY GONNA THROW UP." PT STATED "I'M ALLERGIC TO ALL ANTI NAUSEA MEDICATIONS AND THE ONLY THING THAT WORKS FOR ME IS BENADRYL." PT ALSO REPORTS THAT SHE IS HAVING "REALLY BAD PAIN." BROUGHT HER 1 TAB PERCOCET BUT SHE STATES "EVERY TIME THEY BRING ME MY PAIN MEDS I GET SO NAUSEAOUS, IS THAT NORMAL." EDUCATED PT THAT NARCOTICS CAN SOMETIMES CAUSE NAUSEA AND SUGGESTED THAT SHE TRY TO EAT SOMETHING PRIOR TO TAKING MEDS. REFUSED NICOTINE PATCH SHE STATES IT ALSO CAUSES HER NAUSEA. PT REFUSED TO LET THIS RN ASSESS HER INCISION SITES "UNTIL THE NAUSEA PASSES". CALL LIGHT WITHIN REACH.
--- NOTE | 2017-11-01 09:33 | NUR ---
PT HAD 200ML EMESIS. TOOK PERCOCET AND ORDERED TOAST FROM KITCHEN.
--- NOTE | 2017-11-01 11:00 | NUR ---
PATIENT SITTING UP IN BED. RN IN ROOM TALKING TO PATIENT. FRESH ICE WATER GIVEN. NO OTHER NEEDS AT THIS TIME.
--- NOTE | 2017-11-01 11:11 | NUR ---
CALLED CELL PHONE, LEFT MESSAGE. CALLED HIS OFFICE AND LEFT MESSAGE WITH JUAN
--- NOTE | 2017-11-01 11:25 | NUR ---
CALLED TO TALK TO TO UPDATE. PT REPORTS NAUSEA, NO EMESIS FOR ME. SHE HAS CONCERNS ABOUT PAIN COVERAGE AT HOME AND WHAT THE SCRIPT IS. ALSO WORK NOTE. SAID NO NOT DISCHARGE UNITL HE CAN COME SEE PT, HE WILL ADDRESS HOME SCRIPTS AT THAT TIME. PT NOTIFIED OF THIS AND PT SAID SHE WOULD JUST TAKE THE SCRIPT AND SHE WANTS TO GO HOME NOW. EDUCATION ON POST OP CARE AND NEED FOR TO SEE BEFORE DISCHARGE. PT AGREED TO STAY TO BE SEEN THIS AFTERNOON. PT ALSO GIVEN MOTRIN FOR PAIN COVERAGE. PT REFUSED AT THIS TIME TO GO FOR A WALK VERY DEFINITLY, EDUCATION PROVIDED PT NOT RECEPTIVE.
--- NOTE | 2017-11-01 13:14 | NUR ---
PT SITTING UP IN BED, ALERT AND ORIENTED. SHE WAS FRIENDLY, SAID SHE FEELS BETTER, BUT WAS TRYING TO DECIDE ON LUNCH. I TOLD HER I WOULD CONTACT HER RN AND LET HER HELP PT REGARDING ANY RESTRICTIONS, WHICH I DID. 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 IT SEEMS TO HER THAT THE BOSS SEEMS UNAWARE OR UNCARING ABOUT IT. PT PLANS ON BEING DC'D TODAY. PRAYED FOR PT AT HER REQUEST. WILL FOLLOW NEEDED
[2017-11-01] MEDS ORDERED: OXYCODON-ACETA1 EAC2 PO (13:35)
--- NOTE | 2017-11-01 14:09 | NUR ---
PT C/O 8/ PAIN TO ABDOMEN. GAVE PERCOCET 7.5/325 MG 1 TAB PO PRN. PT UP TO BATHROOM WITH MINIMAL ASSIST, HELP WITH CORDS. STEADY ON FEET.
--- NOTE | 2017-11-01 15:13 | NUR ---
PT UP TO AMBULATE FULL LAP OF MEDICAL/SURGICAL FLOOR. PT TOLERATED WELL. NO NAUSEA. PT REPORTS SHE IS GOING TO EAT OTHER HALF OF GRILLED CHEESE SANDWICH NOW. PT REPORTS PAIN IS BETTER WITH PERCOCET.
--- NOTE | 2017-11-01 17:00 | NUR ---
PT HAS CONSUMED 100% OF DINNER, NO NAUSEA. PAIN WELL MANAGED. PT WANTS TO DISCHARGE HAS MET ALL DISCHARGE PARAMETERS.
--- NOTE | 2017-11-01 17:10 | NUR ---
DISCHARGE PACKET GIVEN WITH DISCHARGE EDUCATION ON ACTIVITY RESTRICTIONS NO LIFTING/PUSHING/PULLING GREATER THAN 20LBS FOR THE NEXT 2 WEEKS. PT INSTRUCTED TO NOT LIFT 3 YEAR OLD, PT REPORTS SHE HAS HELP TO TAKE CARE OF 3 YEAR OLD. PT INSTRUCTED TO NOT DRIVE WHILE TAKING NARCOTICS. TO FOLLOW UP WITH SCHEDULED. EDUCATION GIVEN ON MEDICATIONS LAST DOSE NEXT DOSE, SIDE EFFECTS, TO DRINK WATER MUCH TOLERATED TO HELP WITH CONSTIPATION. WOUND CAER INSTRUCTIONS GIVEN, OK TO SHOWER IN 48 HOURS, LEAVE STERI STRIPS ON. SIGNS/SYMPTOMS TO SEEK MEDICAL ATTENTION. PT ABLE TO VERBALIZE ALL INSTRUCTIONS BACK. I.V. SITE REMOVED WNL, TIP INTACT.
--- NOTE | 2017-11-03 10:03 | HP ---
[facility] [address], [place] [address] Signed ADMISSION DATE: 10/31/2017 REASON FOR ADMISSION: Acute calculous cholecystitis. 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 She has had 3 days of increasing right upper abdominal pain, which culminated in a visit to the emergency room where she was evaluated by Dr. Suresh. Clinically, considered likely to have acute cholecystitis. A gallbladder ultrasound was performed confirming multiple gallstones with one wedged in the infundibulum of the gallbladder. There is no evidence, otherwise, of acute cholecystitis, specifically no pericholecystic fluid. She was admitted, given intravenous fluids, parenteral pain medication, IV antibiotic Ancef. She remains with right subcostal pain, which is relatively benefitted by morphine intravenously administered. 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 She has been free of substance abuse for over 10 years. ALLERGIES: Include Reglan, Compazine, Phenergan, all antiemetics essentially, which caused central nervous system problems for her. SOCIAL HISTORY: She is accompanied by her sister, mother, and father. 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 She has a son on whom I have performed tonsillectomy she tells me (a number of years ago, no doubt). REVIEW OF SYSTEMS: She denies any shortness of breath or chest pain. She has had no dysphagia, dysuria. Denies any hematemesis or blood per rectum. Her pain is mostly in the right subcostal area. PHYSICAL EXAMINATION: GENERAL: A somewhat obese white woman, who does not look systemically toxic. HEENT: Mucous membranes are moist. Trachea is midline. CHEST: Clear. HEART: Regular without murmur. ABDOMEN: Somewhat obese, but soft. She has tenderness in the right subcostal area. Electronically Signed By: CLINT WATKINS MD 11/03/17 1003 PATIENT NAME: ANTHONY MIRANDA HISTORY AND PHYSICAL DATE OF : 75 PHYSICIAN: CLINT WATKINS MD REPORT #: [id number] REPORT IS CONFIDENTIAL AND NOT TO BE RELEASED WITHOUT AUTHORIZATION [facility] [address], [place] [address] Signed There is no palpable mass. I detect no ascites. EXTREMITIES: Show no clubbing, cyanosis, or edema. LABORATORY STUDIES: On October 30, 2017, at 08:40 p.m., showed a white count of 6.6, hematocrit 40.3, and platelets 205,000. Chem profile was essentially normal. ALT was elevated at 80, alk phos normal at 59, and bilirubin 0.7. Urinalysis was normal. Beta-hCG was negative. Gallbladder ultrasound was performed at approximately midnight was reviewed. The liver appears normal to my examination. Right kidney is normal. The gallbladder has a thickened wall at least my estimation. It is and a stone noted in the infundibulum. There is no sign of intrahepatic ductal dilatation. ASSESSMENT: The patient has acute calculous cholecystitis and remains tender and uncomfortable. Discussed with the patient and her family the pathophysiology of biliary disease, as it relates to gallbladder and gallstones and have recommended cholecystectomy preferred by laparoscopic approach. The risks of bleeding, infection, bile duct injury, need for open procedure, need for other indicated procedures including common duct exploration reviewed in detail. She understands as does her family. We will avoid antiemetics in the perioperative period, but will get Decadron preoperatively for a similar purpose. Preoperative antibiotic Ancef will be given and Pepcid given as well. MD GAGANDEEP Tom/LESTERL /[id number] cc: GEE Moore MD Electronically Signed By: CLINT WATKINS MD 11/03/17 1003 PATIENT NAME: ANTHONY MIRANDA HISTORY AND PHYSICAL DATE OF : 75 PHYSICIAN: CLINT WATKINS MD REPORT #: [id number] REPORT IS CONFIDENTIAL AND NOT TO BE RELEASED WITHOUT AUTHORIZATION
--- NOTE | 2017-11-03 10:03 | OR ---
[facility] [address], [place] [address] Signed DATE OF OPERATION: 10/31/2017 SURGEON: Clint Watkins MD PREOPERATIVE DIAGNOSES: 1. Acute calculous cholecystitis. 2. History of hepatitis C (distant history of IV drug abuse, in remission x10 years). POSTOPERATIVE DIAGNOSES: 1. Acute calculous cholecystitis. 2. History of hepatitis C (distant history of IV drug abuse, in remission x10 years). PROCEDURES: 1. Laparoscopic cholecystectomy with intraoperative cholangiogram. 2. Surgeon-directed fluoroscopy. ANESTHESIA: General endotracheal (Fly Price CRNA) and local 20 mL of 0.25% Marcaine with epinephrine. INDICATION: This 42-year-old white woman was admitted to the emergency room having been evaluated by Dr. Suresh with severe right upper abdominal pain. A gallbladder ultrasound was performed, which showed a thickened gallbladder wall to my examination and a stone and possibly sludge within the gallbladder per radiologist. She has been fluid resuscitated, given intravenous antibiotics and other preparations for operation including Pepcid intravenously administered. She understands the risks of bleeding, infection, bile duct injury, need for open procedure, and other unforeseen complications related to operation and wished to proceed. Of special note, she has 10 years of sobriety of intravenous drug use and is highly functioning at this point. She does have a history of hepatitis C on the basis of prior drug use. FINDINGS: The liver looked surprisingly healthy. No evidence of cirrhosis, particularly. The gallbladder was subacutely inflamed. The gallbladder once excised showed inflammatory changes of the mucosa, but no sign of neoplasm. I did not specifically see stones as had been reported with ultrasound and visualized on ultrasound, but the bile from the gallbladder was markedly thickened and tar like. Electronically Signed By: CLINT WATKINS MD 11/03/17 1003 PATIENT NAME: ANTHONY MIRANDA OPERATIVE REPORT DATE OF : 75 PHYSICIAN: CLINT WATKINS MD REPORT #: [id number] REPORT IS CONFIDENTIAL AND NOT TO BE RELEASED WITHOUT AUTHORIZATION [facility] [address], [place] [address] Signed Cholangiogram that was performed was normal with no sign of filling defect or other abnormality. Of note, the cystic duct crossed anterior to the common bile duct inserting on the left side, a minor and insignificant anatomic variation. DESCRIPTION OF PROCEDURE: The patient was brought to the operating room, given a general endotracheal anesthetic. Preoperative antibiotic Ancef was given. Sequential compression device stockings were used. The abdomen was prepared with chlorhexidine solution and draped sterilely. An infraumbilical incision was made and using an open Stephanie cannula technique, pneumoperitoneum was achieved to a level of 14 mmHg with carbon dioxide gas. Intra-abdominal inspection showed no sign of ascites or carcinomatosis. The gallbladder was obscured from view. The liver looked impressively healthy considering long-standing history of hepatitis C. Three additional trocars were placed in the usual configuration in the subxiphoid, right midclavicular, and right anterior axillary line. The gallbladder was elevated cephalad and omental adhesions to the undersurface were taken down with blunt and electrocautery dissection allowing for better elevation of the gallbladder. The infundibulum of the gallbladder was grasped and retracted laterally. Using blunt and electrocautery dissection, the triangle of Calot was dissected free ultimately identifying well the cystic duct. The cystic arterial branch was identified as well and it was doubly clipped and ultimately divided. A clip was applied across the gallbladder cystic duct junction and a transverse choledochotomy was made in the cystic duct. Retrograde milking of the cystic duct showed clear bile. Using Austin-type cholangiocatheter, intraoperative cholangiography was undertaken showing free flow of contrast in the biliary tree with prompt emptying into the duodenum. Retrograde filling of the common hepatic duct and biliary radicles was normal as well. Of note, the cystic duct inserted on the left side of the common bile duct, a normal and insignificant variant. The catheter was removed and the cystic duct was triply clipped and divided and the gallbladder was dissected free in the retrograde fashion using electrocautery. The gallbladder suffered a small rent in it during the course of dissection, but there was no spillage of stones, only thick black tarry bile. The gallbladder was placed in the Endobag and extracted through the infraumbilical port site without problem, opened on the back table and found to have thick tarry bile, but no sign of stones particularly. Irrigation was undertaken in the subhepatic space. Excess irrigation, fluid, and so forth suctioned free completely. The trocars were removed under direct visualization showing no sign of bleeding. The infraumbilical fascial incision was reapproximated with interrupted 0 Vicryl suture. All wounds were copiously irrigated with saline solution, skin was closed with interrupted 3-0 Vicryl, Steri-Strips were applied. 20 mL of 0.25% Marcaine was injected in the incision sites for its postoperative analgesic effect. Electronically Signed By: CLINT WATKINS MD 11/03/17 1003 PATIENT NAME: ANTHONY MIRANDA OPERATIVE REPORT DATE OF : 75 PHYSICIAN: CLINT WATKINS MD REPORT #: [id number] REPORT IS CONFIDENTIAL AND NOT TO BE RELEASED WITHOUT AUTHORIZATION [facility] [address] [place], [place] [address] Signed MD GAGANDEEP Tom/JAIRO /[id number] cc: MD Haseeb Barrientos FNP Electronically Signed By: CLINT WATKINS MD 11/03/17 1003 PATIENT NAME: ANTHONY MIRANDA OPERATIVE REPORT DATE OF : 75 PHYSICIAN: CLINT WATKINS MD REPORT #: [id number] REPORT IS CONFIDENTIAL AND NOT TO BE RELEASED WITHOUT AUTHORIZATION
== END 2017-11-01 17:10 | disposition home or self-care (01) | DRG 419 ==
LOC: ED 20:58 → MS 10-31 01:24
PROVIDERS: ADMIT Surgery
PROC: 0FT44ZZ Resection of Gallbladder, Percutaneous Endoscopic Approach (ICD-10-PCS; principal; 2017-10-31 14:57)
PROC: BF13YZZ Fluoroscopy of Gallbladder and Bile Ducts using Other Contrast (ICD-10-PCS; principal; 2017-10-31 14:57)
DX: K80.00 Calculus of gallbladder with acute cholecystitis without obstruction (principal); F17.200 Nicotine dependence, unspecified, uncomplicated
CPT/HCPCS: 00790; 74300; 76705; 80053; 81001; 83690; 84703; 85025; 96361; 96374; 96375; 96376; 99285; J0690; J1100; J1200; J1885; J2060; J2250; J2270; J2704; J3010; J7030; J7120; Q9967

== ENCOUNTER 2017-11-06 16:22 | Emergency (ER) | payer OTHER ==
[~2017-11-06] VITALS: Ht 160 cm; Wt 80.7 kg
[~2017-11-06 16:22] MED LIST changes: +MOTRIN IB200 MG PO; +NICODERM CQ1 EAC1 TD; +NORCO 5-325 TA1 EACH PO; +OXYCODON-ACETA1 EAC2 PO; +TYLENOL325 MG PO
== END 2017-11-06 16:43 | disposition home or self-care (01) ==
LOC: ED 16:22
DX: Z48.815 Encounter for surgical aftercare following surgery on the digestive system (principal)

== ENCOUNTER 2021-08-07 09:22 | Emergency (ER) | payer OTHER ==
[~2021-08-07] VITALS: Ht 160 cm; Wt 80.7 kg
--- OUTSIDE RECORDS SUMMARY | 2021-08-07 09:26 | XMS ---
PreManage Notification: ANTHONY MIRANDA Security Education Intern Events No recent Security Events currently on file CRITERIA MET - [facility] CARE PROVIDERS There are no care providers on record at this time. Rober has no Care Guidelines for this patient. Mary VISIT COUNT (12 MO.) 1 [facility] TOTAL 1 NOTE: Visits indicate total known visits. ED/C VISIT TRACKING (12 MO.) 08/07/2021 09:23 [facility] [place] TYPE: Emergency COMPLAINT: - RIBS, L PINKY FINGER INJURY INPATIENT VISIT TRACKING (12 MO.) No inpatient visits to display in this time frame [id number]
[2021-08-07] MEDS ORDERED: GABAPENTIN800 MG PO (09:47)
[2021-08-07] MEDS ORDERED: TRAZODONE HCL100 MG PO (09:47)
[2021-08-07] MEDS ORDERED: HYDROCHLOROTHIA25 MG PO (09:47)
[2021-08-07] MEDS ORDERED: PAROXETINE HCL20 MG PO (09:47)
[2021-08-07] MEDS ORDERED: HYDROXYZINE PAM50 MG PO (09:48)
[2021-08-07] MEDS ORDERED: NAPROXEN500 MG PO (09:48)
== END 2021-08-07 11:17 | disposition home or self-care (01) ==
LOC: ED 09:22
DX: S63.617A Unspecified sprain of left little finger, initial encounter (principal); S20.212A Contusion of left front wall of thorax, initial encounter; J45.909 Unspecified asthma, uncomplicated; F17.200 Nicotine dependence, unspecified, uncomplicated; W22.8XXA Striking against or struck by other objects, initial encounter; Z88.8 Allergy status to other drugs, medicaments and biological substances; Z79.899 Other long term (current) drug therapy
CPT/HCPCS: 71101; 73140; 99283-25; A9270

== ENCOUNTER 2021-12-19 15:33 | Emergency (ER) | payer OTHER ==
[~2021-12-19] VITALS: Ht 160 cm; Wt 80.7 kg
[~2021-12-19 15:33] MED LIST changes: +GABAPENTIN800 MG PO; +HYDROCHLOROTHIA25 MG PO; +HYDROXYZINE PAM50 MG PO; +NAPROXEN500 MG PO; +PAROXETINE HCL20 MG PO; +TRAZODONE HCL100 MG PO
--- OUTSIDE RECORDS SUMMARY | 2021-12-19 15:36 | XMS ---
PreManage Notification: ANTHONY MIRANDA Security Vc++ Developer Events No recent Security Events currently on file CRITERIA MET - [facility]MP CARE PROVIDERS [facility] Current PHONE: [phone] Rober has no Care Guidelines for this patient. EWarren VISIT COUNT (12 MO.) 2 [facility] TOTAL 2 NOTE: Visits indicate total known visits. ED/UCC VISIT TRACKING (12 MO.) 12/19/2021 15:33 [facility] [place] TYPE: Emergency COMPLAINT: - CHEST PAIN 08/07/2021 09:23 [facility] [place] TYPE: Emergency COMPLAINT: - RIBS, L PINKY FINGER INJURY DIAGNOSES: - Unspecified sprain of left little finger, initial encounter - Contusion of left front wall of thorax, initial encounter - Striking against or struck by other objects, initial encounter - Unspecified injury of thorax, initial encounter - Other long-term (current) drug therapy - Unspecified asthma, uncomplicated - Allergy status to other drugs, medicaments and biological substances - Nicotine dependence, unspecified, uncomplicated INPATIENT VISIT TRACKING (12 MO.) No inpatient visits to display in this time frame [id number]
--- NOTE | 2021-12-20 17:36 | EKG ---
[facility] [address] [facility] [place], [place] [address] Signed Normal sinus rhythm Nonspecific ST abnormality Abnormal ECG When compared with ECG of 11-JUN-2017 07:37, No significant change was found Confirmed by MAXIME MEDINA DO ([id number]) on 12/20/2021 5:36:20 PM Electronically Signed By: MAXIME MEDINA DO 12/20/21 1736 PATIENT NAME: ANTHONY MIRANDA Electrocardiogram DATE OF : 75 PHYSICIAN: MAXIME MEDINA DO REPORT #: [id number] REPORT IS CONFIDENTIAL AND NOT TO BE RELEASED WITHOUT AUTHORIZATION
== END 2021-12-19 21:00 | disposition home or self-care (01) ==
LOC: ED 15:33
DX: R07.89 Other chest pain (principal); M54.6 Pain in thoracic spine; J45.909 Unspecified asthma, uncomplicated; F17.200 Nicotine dependence, unspecified, uncomplicated; Z88.8 Allergy status to other drugs, medicaments and biological substances; Z79.899 Other long term (current) drug therapy
CPT/HCPCS: 36415; 71046; 71260; 84484; 85379; 93005; 93010; 99285-25; A9270; J7040; Q9967

== ENCOUNTER 2022-02-13 11:05 | Emergency (ER) | payer OTHER ==
[~2022-02-13] VITALS: Ht 160 cm; Wt 82.5 kg
--- OUTSIDE RECORDS SUMMARY | 2022-02-13 11:07 | XMS ---
PreManage Notification: ANTHONY MIRANDA Security Dropper Tank Storage Events No recent Security Events currently on file [facility] CARE PROVIDERS [facility] Current PHONE: Unknown Rober has no Care Guidelines for this patient. E.Manoj VISIT COUNT (12 MO.) [address] [place] [address] TOTAL 4 NOTE: Visits indicate total known visits. 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
[2022-02-13] MEDS ORDERED: ADVIL200 MG PO (11:24)
[2022-02-13] MEDS ORDERED: PREDNISONE20 MG PO (13:26)
[2022-02-13] MEDS ORDERED: HYDROCODON-ACE1 EA11 PO (13:26)
== END 2022-02-13 13:54 | disposition home or self-care (01) ==
LOC: ED 11:05
DX: M70.71 Other bursitis of hip, right hip (principal); J45.909 Unspecified asthma, uncomplicated; F17.200 Nicotine dependence, unspecified, uncomplicated; Z88.8 Allergy status to other drugs, medicaments and biological substances; Z79.899 Other long term (current) drug therapy
CPT/HCPCS: 73502; 93971; 99284-25; A9270; J8540

== ENCOUNTER 2022-02-28 13:59 | Emergency (ER) | payer OTHER ==
[~2022-02-28] VITALS: Ht 160 cm; Wt 85.5 kg
[~2022-02-28 13:59] MED LIST changes: +ADVIL200 MG PO; +HYDROCODON-ACE1 EA11 PO
--- OUTSIDE RECORDS SUMMARY | 2022-02-28 14:02 | XMS ---
PreManage Notification: ANTHONY MIRANDA Security Glove Stitcher Events 1 event(s) in the past 18 months Most recent security events: Elopement at [facility] 02/12/2022 17:46 - Patient eloped before treatment completed. - Patient with suicidal and/or homicidal ideations eloped. - Patient eloped with IV in place. Details: PATIENT LWBS CRITERIA MET - PDMP - [facility] - 2 Visits in 30 Days CARE PROVIDERS There are no care providers on record at this time. Rober has no Care Guidelines for this patient. E.Jeanmarie. VISIT COUNT (12 MO.) 5 [facility] H. TOTAL 5 NOTE: Visits indicate total known visits. ED/UCC VISIT TRACKING (12 MO.) 02/28/2022 13:59 [facility] [place] TYPE: Emergency COMPLAINT: - RT LEG PAIN 02/13/2022 11:06 [facility] [place] TYPE: Emergency COMPLAINT: - R HIP/LEG PAIN DIAGNOSES: - Pain in right hip - Allergy status to other drugs, medicaments and biological substances - Nicotine dependence, unspecified, uncomplicated - Other mcc (current) drug therapy - Other bursitis of hip, right hip - Unspecified asthma, uncomplicated 02/12/2022 17:46 [facility] [place] TYPE: Emergency COMPLAINT: - HIP PAIN 12/19/2021 15:33 [facility] [place] TYPE: Emergency COMPLAINT: - CHEST PAIN DIAGNOSES: - Unspecified asthma, uncomplicated - Nicotine dependence, unspecified, uncomplicated - Pain in thoracic spine - Other terminal operations manager (current) drug therapy - Allergy status to [...] injury of thorax, initial encounter - Other terminal operations manager (current) drug therapy - Unspecified asthma, uncomplicated - Allergy status to other drugs, medicaments and biological substances - Nicotine dependence, unspecified, uncomplicated INPATIENT VISIT TRACKING (12 MO.) No inpatient visits to display in this time frame [id number]
[2022-02-28] MEDS ORDERED: CYCLOBENZAPRINE10 MG PO (16:44)
[2022-02-28] MEDS ORDERED: HYDROCODON-ACE1 EA10 PO (16:44)
== END 2022-02-28 17:10 | disposition home or self-care (01) ==
LOC: ED 13:59
DX: M54.41 Lumbago with sciatica, right side (principal); J45.909 Unspecified asthma, uncomplicated; F17.200 Nicotine dependence, unspecified, uncomplicated; Z88.8 Allergy status to other drugs, medicaments and biological substances; Z79.899 Other long term (current) drug therapy
CPT/HCPCS: 36415; 80053; 81001; 84703; 85025; 86140; 96374; 96375; 99283-25; A9270; J1100; J1885; J2060

== ENCOUNTER 2022-12-24 21:18 | Emergency (ER) | payer OTHER ==
[~2022-12-24] VITALS: Ht 160 cm; Wt 82.5 kg
[~2022-12-24 21:18] MED LIST changes: +CYCLOBENZAPRINE10 MG PO; +HYDROCODON-ACE1 EA10 PO
--- OUTSIDE RECORDS SUMMARY | 2022-12-24 21:20 | XMS ---
PreManage Notification: ANTHONY MIRANDA Security Harp Maker Events 1 event(s) in the past 18 months Most recent security events: Elopement at [facility] 02/12/2022 17:46 - Patient eloped before treatment completed. - Patient with suicidal and/or homicidal ideations eloped. - Patient eloped with IV in place. Details: PATIENT LWBS CRITERIA MET - [facility] CARE PROVIDERS -, Mitesh Swartz- Dentist: Subcontract Administrator [facility] PHONE: [phone] Rober has no Care Guidelines for this patient. E.D. VISIT COUNT (12 MO.) 2 [facility] [address] [place] [address] TOTAL 6 NOTE: Visits indicate total known visits. ED/UCC VISIT TRACKING (12 MO.) 12/24/2022 21:19 [facility] 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 - Nicotine dependence, unspecified, uncomplicated - Lumbago with sciatica, right side - Allergy status to other drugs, medicaments and biological substances - Unspecified asthma, uncomplicated 02/13/2022 11:06 [facility] [place] TYPE: Emergency COMPLAINT: - R HIP/LEG PAIN DIAGNOSES: - Other bursitis of hip, right hip - Nicotine dependence, unspecified, uncomplicated - Pain in right hip - Unspecified asthma, uncomplicated - Other 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
== END 2022-12-25 00:10 | disposition home or self-care (01) ==
LOC: ED 21:18
DX: F10.129 Alcohol abuse with intoxication, unspecified (principal); Y90.6 Blood alcohol level of 120-199 mg/100 ml; J45.909 Unspecified asthma, uncomplicated; F17.200 Nicotine dependence, unspecified, uncomplicated; Z88.8 Allergy status to other drugs, medicaments and biological substances; Z79.899 Other long term (current) drug therapy
CPT/HCPCS: 36415; 80053; 81001; 84443; 84703; 85025; 96372; 99284; G0480; J1630; J2060

== ENCOUNTER 2023-07-05 06:43 | Emergency (ER) | payer OTHER ==
[~2023-07-05] VITALS: Ht 160 cm; Wt 81.7 kg
[~2023-07-05 06:43] MED LIST changes: +ATIVAN1 MG PO; +BUSPIRONE HCL10 MG PO; +MAVYRET 100-401 EACH PO; +VISTARIL25 MG PO; +VISTARIL50 MG PO
--- OUTSIDE RECORDS SUMMARY | 2023-07-05 06:46 | XMS ---
PreManage Notification: ANTHONY MIRANDA Security Counter Molder Events 1 event(s) in the past 18 months Most recent security events: Elopement at [facility] 02/12/2022 17:46 - Patient eloped before treatment completed. - Patient with suicidal and/or homicidal ideations eloped. - Patient eloped with IV in place. Details: PATIENT LWBS CRITERIA MET - PDMP - [facility] - 2 Visits in 30 Days CARE PROVIDERS GINNY THOMSON, Transfer Machine Operator/Cra 05/21/2023-[facility] PHONE: [phone] -Mitesh- Dentist: Warehouse Processor [facility] PHONE: [phone] Rober has no Care Guidelines for this patient. E.D. VISIT COUNT (12 MO.) [address] [facility] [facility] TOTAL 6 NOTE: Visits indicate total known visits. ED/UCC VISIT TRACKING (12 MO.) 07/05/2023 06:44 [facility] [place] TYPE: Emergency COMPLAINT: - PANIC ATTACK 07/03/2023 08:44 [facility] [place] TYPE: Emergency COMPLAINT: - PANIC ATTACK 04/13/2023 08:[address] [facility] [address] [place] [place] TYPE: Emergency COMPLAINT: - ANXIETY, PANIC ATTACK DIAGNOSES: - Allergy status to other drugs, medicaments and biological substances - Anxiety disorder, unspecified - Nicotine dependence, unspecified, uncomplicated - Panic disorder [episodic paroxysmal anxiety] 04/12/2023 11:[address] [facility] [address] [place] [place] TYPE: Emergency COMPLAINT: - PANIC ATTACK 04/11/2023 11:09 [facility] Yancey HJose [place] TYPE: Emergency COMPLAINT: - ANXIETY DIAGNOSES: - Allergy status to other drugs, medicaments and biological substances - Anxiety disorder, unspecified - Cough, unspecified - Nicotine dependence, unspecified, uncomplicated 12/24/2022 21:19 [facility] Yancey HJose [place] TYPE: Emergency COMPLAINT: - OD INTENTIONAL DIAGNOSES: - Alcohol abuse with intoxication, unspecified - Allergy status to other drugs, medicaments and biological substances - Blood alcohol level of 120-199 mg/100 ml - Nicotine dependence, unspecified, uncomplicated - Other half-way (current) drug therapy - Unspecified asthma, uncomplicated INPATIENT VISIT TRACKING (12 MO.) No inpatient visits to display in this time frame [id number]
[2023-07-05] MEDS ORDERED: VENTOLIN HFA18 GM INH (07:29)
[2023-07-05] MEDS ORDERED: CLONAZEPAM1 MG PO (08:03)
[2023-07-05 08:11] VITALS: BP 125/79
== END 2023-07-05 08:14 | disposition home or self-care (01) ==
LOC: ED 06:43
DX: F41.9 Anxiety disorder, unspecified (principal); J45.909 Unspecified asthma, uncomplicated; F17.200 Nicotine dependence, unspecified, uncomplicated; Z88.8 Allergy status to other drugs, medicaments and biological substances; Z79.899 Other long term (current) drug therapy
CPT/HCPCS: J2060

== ENCOUNTER 2023-07-12 14:21 | Emergency (ER) | payer OTHER ==
[~2023-07-12] VITALS: Ht 160 cm; Wt 81.7 kg
[~2023-07-12 14:21] MED LIST changes: +CLONAZEPAM1 MG PO; +VENTOLIN HFA18 GM INH
--- OUTSIDE RECORDS SUMMARY | 2023-07-12 14:25 | XMS ---
PreManage Notification: ANTHONY MIRANDA Security Portrait Consultant Events 1 event(s) in the past 18 months Most recent security events: Elopement at [facility] 02/12/2022 17:46 - Patient eloped before treatment completed. - Patient with suicidal and/or homicidal ideations eloped. - Patient eloped with IV in place. Details: PATIENT LWBS CRITERIA MET - 6 ED Visits in 6 Months - [facility] - 2 Visits in 30 Days CARE PROVIDERS GINNY THOMSON Supervisor Accounts Receivable/Supervisor Vacuum Metalizing 05/21/2023-Naomie LUCY PHONE: [phone] -Mitesh- Dentist: Plastics Technician [facility], [facility] PHONE: [phone] Rober has no Care Guidelines for this patient. E.D. VISIT COUNT (12 MO.) [address] [facility] [address] [facility] TOTAL 7 NOTE: Visits indicate total known visits. 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 - Unspecified asthma, uncomplicated 07/03/2023 08:44 [facility] [place] TYPE: Emergency COMPLAINT: - PANIC ATTACK DIAGNOSES: - Allergy status to other drugs, medicaments and biological substances - Anxiety disorder, unspecified - Nicotine dependence, unspecified, uncomplicated - Other rat exterminator (current) drug therapy - Unspecified asthma, uncomplicated 04/13/2023 08:16 [facility] [place] TYPE: Emergency COMPLAINT: - ANXIETY, PANIC ATTACK DIAGNOSES: - Allergy status to other drugs, medicaments and biological substances - Anxiety disorder, unspecified - Nicotine dependence, unspecified, uncomplicated - Panic disorder [episodic paroxysmal anxiety] 04/12/2023 11:23 [facility] [place] TYPE: Emergency COMPLAINT: - PANIC ATTACK 04/11/2023 11:09 [facility] [place] TYPE: Emergency COMPLAINT: - ANXIETY DIAGNOSES: - Allergy status to other drugs, medicaments and biological substances - Anxiety disorder, unspecified - Cough, unspecified - Nicotine dependence, unspecified, uncomplicated 12/24/2022 21:19 [facility] [place] TYPE: Emergency COMPLAINT: - OD INTENTIONAL DIAGNOSES: - Alcohol abuse with intoxication, unspecified - Allergy status to other drugs, medicaments and biological substances - Blood alcohol level of 120-199 mg/100 ml - Nicotine dependence, unspecified, uncomplicated - Other rat exterminator (current) drug therapy - Unspecified asthma, uncomplicated INPATIENT VISIT TRACKING (12 MO.) No inpatient visits to display in this time frame [id number]
[2023-07-12] MEDS ORDERED: HYDROCHLOROTHIA25 MG PO (14:34)
[2023-07-12 14:39] LABS: BASOPHILS 0.3 % (0-2); EOSINOPHILS 2.2 % (0-6); HEMATOCRIT 43.8 % (35.0-50.0); HEMOGLOBIN 15.2 g/dL (12.0-18.0); LYMPHOCYTES 14.2 % (24-44); MCH 32.8 (27-36); MCHC 34.7 g/dl (30-36); MCV 94.4 fl (81-99); MONOCYTES 4.7 % (0-12); NEUTROPHILS 78.6 % (39-80); PLATELET COUNT 303 K/uL (140-440); RBC 4.64 M/ul (4.3-5.7); RDW 13.2 (10.5-15.0)
[2023-07-12 15:07] LABS: ALBUMIN 3.6 g/dL (3.4-5.0); ALBUMIN/GLOBULIN RATIO 0.9 (1.1-2.4); ANION GAP 17.7 (7-21); BILIRUBIN, TOTAL 1.1 ng/dL (0.2-1.0); BUN/CREATININE RATIO 13.92 (6.0-28.6); CALCIUM 9.4 mg/dL (8.5-10.1); CREATININE, SERUM 0.79 mg/dL (0.55-1.02); POTASSIUM 3.7 mmol/L (3.5-5.1); PROTEIN, TOTAL 7.6 g/dL (6.4-8.2)
[2023-07-12] MEDS ORDERED: OMEPRAZOLE20 MG PO (16:59)
[2023-07-12 17:05] VITALS: BP 123/39
== END 2023-07-12 17:05 | disposition home or self-care (01) ==
LOC: ED 14:21
PROVIDERS: Emergency Medicine
DX: F41.0 Panic disorder [episodic paroxysmal anxiety] (principal); R10.10 Upper abdominal pain, unspecified; J45.909 Unspecified asthma, uncomplicated; F17.200 Nicotine dependence, unspecified, uncomplicated; Z88.8 Allergy status to other drugs, medicaments and biological substances; Z79.899 Other long term (current) drug therapy
CPT/HCPCS: 36415; 80053; 83690; 85025; 96374; 99283-25; J2060; J7040

== ENCOUNTER 2023-07-13 11:07 | Emergency (ER) | payer OTHER ==
[~2023-07-13] VITALS: Ht 160 cm; Wt 81.7 kg
[~2023-07-13 11:07] MED LIST changes: +OMEPRAZOLE20 MG PO
--- OUTSIDE RECORDS SUMMARY | 2023-07-13 11:10 | XMS ---
PreManage Notification: ANTHONY MIRANDA Security Hand Thermal Cutter Events 1 event(s) in the past 18 months Most recent security events: Elopement at [facility] 02/12/2022 17:46 - Patient eloped before treatment completed. - Patient with suicidal and/or homicidal ideations eloped. - Patient eloped with IV in place. Details: PATIENT LWBS CRITERIA MET - 6 ED Visits in 6 Months - [facility] [place] [facility] - 2 Visits in 30 Days CARE PROVIDERS GINNY THOMSON Community Engagement Representative/Contour Grinder 05/21/2023-Naomie LUCY PHONE: [phone] -Mitesh- Dentist: Bobbin Cleaning Machine Operator [facility] PHONE: [phone] Rober has no Care Guidelines for this patient. E.D. VISIT COUNT (12 MO.) [address] [facility] [address] [facility] TOTAL 8 NOTE: Visits indicate total known visits. 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 [facility] [place] TYPE: Emergency COMPLAINT: - PANIC ATTACK DIAGNOSES: - Allergy status to other drugs, medicaments and biological substances - Anxiety disorder, unspecified - Nicotine dependence, unspecified, uncomplicated - Other intermediate (current) drug therapy - Unspecified asthma, uncomplicated 04/13/2023 08:[address] [facility] [address] [facility] [place] TYPE: Emergency COMPLAINT: - ANXIETY, PANIC ATTACK DIAGNOSES: - Allergy status to other drugs, medicaments and biological substances - Anxiety disorder, unspecified - Nicotine dependence, unspecified, uncomplicated - Panic disorder [episodic paroxysmal anxiety] 04/12/2023 11:23 [facility]asmany [place] TYPE: Emergency COMPLAINT: - PANIC ATTACK 04/11/2023 11:09 [facility]asmany [place] TYPE: Emergency COMPLAINT: - ANXIETY DIAGNOSES: - Allergy status to other drugs, medicaments and biological substances - Anxiety disorder, unspecified - Cough, unspecified - Nicotine dependence, unspecified, uncomplicated 12/24/2022 21:19 [facility] [place] [address] [place] [place] TYPE: Emergency COMPLAINT: - OD INTENTIONAL DIAGNOSES: - Alcohol abuse with intoxication, unspecified - Allergy status to other drugs, medicaments and biological substances - Blood alcohol level of 120-199 mg/100 ml - Nicotine dependence, unspecified, uncomplicated - Other intermediate (current) drug therapy - Unspecified asthma, uncomplicated INPATIENT VISIT TRACKING (12 MO.) No inpatient visits to display in this time frame [id number]
[2023-07-13 12:10] VITALS: BP 151/102
== END 2023-07-13 12:10 | disposition home or self-care (01) ==
LOC: ED 11:07
DX: F41.9 Anxiety disorder, unspecified (principal); F17.200 Nicotine dependence, unspecified, uncomplicated; Z88.8 Allergy status to other drugs, medicaments and biological substances; Z79.899 Other long term (current) drug therapy
CPT/HCPCS: 96372; 99283; J2060

== ENCOUNTER 2023-07-14 09:11 | Emergency (ER) | payer OTHER ==
[~2023-07-14] VITALS: Ht 160 cm; Wt 81.8 kg
--- OUTSIDE RECORDS SUMMARY | 2023-07-14 09:14 | XMS ---
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 - Patient with suicidal and/or homicidal ideations eloped. - Patient eloped with IV in place. Details: PATIENT LWBS CRITERIA MET - 6 ED Visits in 6 Months - [facility] - 2 Visits in 30 Days CARE PROVIDERS GINNY THOMSON Pressure Tester Operator/Pediatric Physical Therapy Assistant 05/21/2023-Naomie LUCY PHONE: [phone] -Mitesh- Dentist: [facility] PHONE: [phone] Rober has no Care Guidelines for this patient. E.D. VISIT COUNT (12 MO.) [address] [facility] [address] [facility] [place] TOTAL 9 NOTE: Visits indicate total known visits. ED/UCC VISIT TRACKING (12 MO.) 07/14/2023 09:12 [facility] [place] TYPE: Emergency COMPLAINT: - ABD PAIN, DIFFICULTY BREATHING 07/13/2023 11:08 [facility] [place] TYPE: Emergency COMPLAINT: - ABDOMINAL PAIN 07/12/2023 14:22 [facility] [place] TYPE: Emergency COMPLAINT: - ABDOMINAL PAIN DIAGNOSES: - Allergy status to other drugs, medicaments and biological substances - Nicotine dependence, unspecified, uncomplicated - Other retirement (current) drug therapy - Panic disorder [episodic paroxysmal anxiety] - Unspecified asthma, uncomplicated - Upper abdominal pain, unspecified [facility] [place] [facility] COMPLAINT: - PANIC ATTACK DIAGNOSES: - Allergy status to other drugs, medicaments and biological substances - Anxiety disorder, unspecified - Nicotine dependence, unspecified, uncomplicated - Other keno terminal operator (current) drug therapy - Unspecified asthma, uncomplicated 07/03/2023 08:[facility] [place] [facility] COMPLAINT: - PANIC ATTACK DIAGNOSES: - Allergy status to other drugs, medicaments and biological substances - Anxiety disorder, unspecified - Nicotine dependence, unspecified, uncomplicated - Other keno terminal operator (current) drug therapy - Unspecified asthma, uncomplicated 04/13/2023 08:16 [facility] [place] TYPE: Emergency COMPLAINT: - ANXIETY, PANIC ATTACK DIAGNOSES: - Allergy status to other drugs, medicaments and biological substances - Anxiety disorder, unspecified - Nicotine dependence, unspecified, uncomplicated - Panic disorder [episodic paroxysmal anxiety] 04/12/2023 11:[address] [facility] [address] [place] TYPE: Emergency COMPLAINT: - PANIC ATTACK 04/11/2023 11:[address] [facility] [address] [place] TYPE: Emergency COMPLAINT: - ANXIETY DIAGNOSES: - Allergy status to other drugs, medicaments and biological substances - Anxiety disorder, unspecified - Cough, unspecified - Nicotine dependence, unspecified, uncomplicated 12/24/2022 21:19 [facility] [address] [place] TYPE: Emergency COMPLAINT: - OD INTENTIONAL DIAGNOSES: - Alcohol abuse with intoxication, unspecified - Allergy status to other drugs, medicaments and biological substances - Blood alcohol level of 120-199 mg/100 ml - Nicotine dependence, unspecified, uncomplicated - Other retirement (current) drug therapy - Unspecified asthma, uncomplicated INPATIENT VISIT TRACKING (12 MO.) No inpatient visits to display in this time frame [id number]
[2023-07-14 09:45] VITALS: BP 116/91
== END 2023-07-14 09:45 | disposition home or self-care (01) ==
LOC: ED 09:11
DX: F41.9 Anxiety disorder, unspecified (principal); J45.909 Unspecified asthma, uncomplicated; F17.200 Nicotine dependence, unspecified, uncomplicated; Z88.8 Allergy status to other drugs, medicaments and biological substances; Z79.899 Other long term (current) drug therapy
CPT/HCPCS: 99283

== ENCOUNTER 2023-07-29 09:20 | Emergency (ER) | payer OTHER ==
[~2023-07-29] VITALS: Ht 160 cm; Wt 81.6 kg
--- OUTSIDE RECORDS SUMMARY | ~2023-07-29 | XMS | Continuity of Care Document ---
Demographics + + + | Address | [address] | | | [place] [address] | + + + | Preferred Language | Unknown | + + + | Marital Status | Never | + + + | Yazidi Affiliation | Unknown | + + + | Race | White | + + + | Ethnic Group | Not or | + + + Author + + + | Author | [facility] | + + + | Organization | [facility] | + + + | Address | [address] | | | [place] [address] | + + + | Phone | | + + + Care Team Providers + + + + | Care Plastic Tile Layer Name | Role | Phone | + + + + Unavailable | Unavailable | + + + + Allergies No information. Encounters No information. Functional Status No information. Immunizations No information. Medications No information. Problems + + + + | date | description | facility | + + + + | 2023-06-04 15:25 | CHRONIC VIRAL HEPATITIS C | [facility] | + + + + | 2023-06-21 12:34 | CHRONIC VIRAL HEPATITIS C | [facility] | + + + + | 2023-07-03 08:44 | NICOTINE DEPENDENCE, | [facility] | | | UNSPECIFIED, UNCOMPLICATED | | + + + + | 2023-07-03 08:44 | ANXIETY DISORDER, | [facility] | | | UNSPECIFIED | | + + + + | 2023-07-03 08:44 | UNSPECIFIED ASTHMA, | [facility] | | | UNCOMPLICATED | | + + + + | 2023-07-03 08:44 | OTHER ACTIVITY THERAPIST (CURRENT) | [facility] | | | DRUG THERAPY | | + + + + | 2023-07-03 08:44 | ALLERGY STATUS TO OTH | [facility] | | | DRUG/MEDS/BIOL SUBST STATUS | | | | | | + + + + | 2023-07-05 06:44 | NICOTINE DEPENDENCE, | [facility] | | | UNSPECIFIED, UNCOMPLICATED | | + + + + | 2023-07-05 06:44 | ANXIETY DISORDER, | [facility] | | | UNSPECIFIED | | + + + + | 2023-07-05 06:44 | UNSPECIFIED ASTHMA, | [facility] | | | UNCOMPLICATED | | + + + + | 2023-07-05 06:44 | OTHER PRISON (CURRENT) | [facility] | | | DRUG THERAPY | | + + + + | 2023-07-05 06:44 | ALLERGY STATUS TO OTH | [facility] | | | DRUG/MEDS/BIOL SUBST STATUS | | | | | | + + + + | 2023-07-12 14:22 | NICOTINE DEPENDENCE, | [facility] | | | UNSPECIFIED, UNCOMPLICATED | | + + + + | 2023-07-12 14:22 | PANIC DISORDER [EPISODIC | [facility] | | | PAROXYSMAL ANXIETY] | | + + + + | 2023-07-12 14:22 | UNSPECIFIED ASTHMA, | [facility] | | | UNCOMPLICATED | | + + + + | 2023-07-12 14:22 | UPPER ABDOMINAL PAIN, | [facility] | | | UNSPECIFIED | | + + + + | 2023-07-12 14:22 | OTHER PRISON (CURRENT) | [facility] | | | DRUG THERAPY | | + + + + | 2023-07-12 14:22 | ALLERGY STATUS TO OTH | [facility] | | | DRUG/MEDS/BIOL SUBST STATUS | | | | | | + + + + | 2023-07-13 11:08 | NICOTINE DEPENDENCE, | [facility] | | | UNSPECIFIED, UNCOMPLICATED | | + + + + | 2023-07-13 11:08 | ANXIETY DISORDER, | [facility] | | | UNSPECIFIED | | + + + + | 2023-07-13 11:08 | OTHER PRISON (CURRENT) | [facility] | | | DRUG THERAPY | | + + + + | 2023-07-13 11:08 | ALLERGY STATUS TO OTH | [facility] | | | DRUG/MEDS/BIOL SUBST STATUS | | | | | | + + + + | 2023-07-14 09:12 | NICOTINE DEPENDENCE, | [facility] | | | UNSPECIFIED, UNCOMPLICATED | | + + + + | 2023-07-14 09:12 | ANXIETY DISORDER, | [facility] | | | UNSPECIFIED | | + + + + | 2023-07-14 09:12 | UNSPECIFIED ASTHMA, | [facility] | | | UNCOMPLICATED | | + + + + | 2023-07-14 09:12 | OTHER PRISON (CURRENT) | [facility] | | | DRUG THERAPY | | + + + + | 2023-07-14 09:12 | ALLERGY STATUS TO OTH | [facility] | | | DRUG/MEDS/BIOL SUBST STATUS | | | | | | + + + + | 2023-07-19 08:00 | CHRONIC VIRAL HEPATITIS C | [facility] | + + + + | 2023-07-27 12:09 | NICOTINE DEPENDENCE, | [facility] | | | UNSPECIFIED, UNCOMPLICATED | | + + + + | 2023-07-27 12:09 | ANXIETY DISORDER, | [facility] | | | UNSPECIFIED | | + + + + | 2023-07-27 12:09 | OTHER ACTIVITY THERAPIST (CURRENT) | [facility] | | | DRUG THERAPY | | + + + + | 2023-07-27 12:09 | ALLERGY STATUS TO OTH | [facility] | | | DRUG/MEDS/BIOL SUBST STATUS | | | | | | + + + + Procedures No information. Results/Labs No information. Social History +--------+ + + | date | description | facility | +--------+ + + Vital Signs No information."
[~2023-07-29 09:20] MED LIST changes: +CLONAZEPAM0.5 MG PO; +HYDROXYZINE HCL25 MG PO
--- OUTSIDE RECORDS SUMMARY | 2023-07-29 09:26 | XMS ---
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 - Patient with suicidal and/or homicidal ideations eloped. - Patient eloped with IV in place. Details: PATIENT LWBS CRITERIA MET - 6 ED Visits in 6 Months - [facility] - 2 Visits in 30 Days CARE PROVIDERS GINNY THOMSON Maintainer Central Office/[employer] 05/21/2023-Naomie LUCY PHONE: [phone] -Mitesh- Dentist: [facility] PHONE: [phone] Rober has no Care Guidelines for this patient. E.D. VISIT COUNT (12 MO.) 11 [facility] [place] TOTAL 11 NOTE: Visits indicate total known visits. ED/UCC VISIT TRACKING (12 MO.) 07/29/2023 09:21 [facility] [place] TYPE: Emergency COMPLAINT: - ANXIETY 07/27/2023 12:09 [facility] [place] TYPE: Emergency COMPLAINT: - ANXIETY DIAGNOSES: - Allergy status to other drugs, medicaments and biological substances - Anxiety disorder, unspecified - Nicotine dependence, unspecified, uncomplicated - Other watermelon inspector (current) drug therapy 07/14/2023 09:12 [facility] [place] TYPE: Emergency COMPLAINT: - ABD PAIN, DIFFICULTY BREATHING DIAGNOSES: - Allergy status to other drugs, medicaments and biological substances - Anxiety disorder, unspecified - Nicotine dependence, unspecified, uncomplicated - Other longterm (current) drug therapy - Unspecified asthma, uncomplicated 07/13/2023 11:08 [facility] [place] TYPE: Emergency COMPLAINT: - ABDOMINAL PAIN DIAGNOSES: - Allergy status to other drugs, medicaments and biological substances - Anxiety disorder, unspecified - Nicotine dependence, unspecified, uncomplicated - Other watermelon inspector (current) drug therapy 07/12/2023 14:22 [facility] [place] TYPE: Emergency COMPLAINT: - ABDOMINAL PAIN DIAGNOSES: - Allergy status to other drugs, medicaments and biological substances - Nicotine dependence, unspecified, uncomplicated - Other watermelon inspector (current) drug therapy - Panic disorder [episodic paroxysmal anxiety] - Unspecified asthma, uncomplicated - Upper abdominal pain, unspecified 07/05/2023 06:44 [facility] [place] TYPE: Emergency COMPLAINT: - PANIC ATTACK DIAGNOSES: - Allergy status to other drugs, medicaments and biological substances - Anxiety disorder, unspecified - Nicotine dependence, unspecified, uncomplicated - Other 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 [place] [place] TYPE: Emergency COMPLAINT: - PANIC ATTACK DIAGNOSES: - Allergy status to other drugs, medicaments and biological substances - Anxiety disorder, unspecified - Nicotine dependence, unspecified, uncomplicated - Other watermelon inspector (current) drug therapy - Unspecified asthma, uncomplicated 04/13/2023 08:[address] [facility] [address] [place] [place] TYPE: Emergency COMPLAINT: - ANXIETY, PANIC ATTACK DIAGNOSES: - Allergy status to other drugs, medicaments and biological substances - Anxiety disorder, unspecified - Nicotine dependence, unspecified, uncomplicated - Panic disorder [episodic paroxysmal anxiety] 04/12/2023 11:23 [facility] [place] TYPE: Emergency COMPLAINT: - PANIC ATTACK 04/11/2023 11:09 [facility] [place] TYPE: Emergency COMPLAINT: - ANXIETY DIAGNOSES: - Allergy status to other drugs, medicaments and biological substances - Anxiety disorder, unspecified - Cough, unspecified - Nicotine dependence, unspecified, uncomplicated 12/24/2022 21:[address] [facility] [place] TYPE: Emergency COMPLAINT: - OD INTENTIONAL DIAGNOSES: - Alcohol abuse with intoxication, unspecified - Allergy status to other drugs, medicaments and biological substances - Blood alcohol level of 120-199 mg/100 ml - Nicotine dependence, unspecified, uncomplicated - Other longterm (current) drug therapy - Unspecified asthma, uncomplicated INPATIENT VISIT TRACKING (12 MO.) No inpatient visits to display in this time frame [id number]
[2023-07-29 12:13] VITALS: BP 109/71
[2023-07-30] MEDS ORDERED: VISTARIL50 MG PO (10:35)
--- NOTE | 2023-07-30 12:15 | EKG ---
[facility] [address] [place], [place] [address] Signed Normal sinus rhythm Cannot rule out Anterior infarct , age undetermined Abnormal ECG When compared with ECG of 11-APR-2023 11:13, No significant change was found Confirmed by SHAYE STORY MD ([id number]) on 07/30/2023 12:15:23 PM Electronically Signed By: SHAYE STORY 07/30/23 1215 PATIENT NAME: ANTHONY MIRANDA Electrocardiogram DATE OF : 75 PHYSICIAN: SHAYE STORY REPORT #: [id number] REPORT IS CONFIDENTIAL AND NOT TO BE RELEASED WITHOUT AUTHORIZATION
== END 2023-07-29 12:10 | disposition home or self-care (01) ==
LOC: ED 09:20
DX: F41.9 Anxiety disorder, unspecified (principal); J45.909 Unspecified asthma, uncomplicated; F17.200 Nicotine dependence, unspecified, uncomplicated; Z88.8 Allergy status to other drugs, medicaments and biological substances; Z79.899 Other long term (current) drug therapy
CPT/HCPCS: 36415; 71045; 84484; 93005; 93010; 96372; 99284-25; J2060

== ENCOUNTER 2023-07-30 09:58 | Emergency (ER) | payer OTHER ==
[~2023-07-30] VITALS: Ht 160 cm; Wt 81.6 kg
--- OUTSIDE RECORDS SUMMARY | 2023-07-30 10:01 | XMS ---
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 02/12/2022 17:46 - Patient eloped before treatment completed. - Patient with suicidal and/or homicidal ideations eloped. - Patient eloped with IV in place. Details: PATIENT LWBS CRITERIA MET - 6 ED Visits in 6 Months - [facility] - 2 Visits in 30 Days CARE PROVIDERS GINNY THOMSON Harp Action Assembler/Teletype Or Varitype Keyboard Operator 05/21/2023-Naomie LUCY PHONE: [phone] -Mitesh- Dentist: Visitor Services Technician [facility] PHONE: [phone] Rober has no Care Guidelines for this patient. E.D. VISIT COUNT (12 MO.) [address] [facility] [address] [facility] [place] TOTAL 12 NOTE: Visits indicate total known visits. ED/UCC VISIT TRACKING (12 MO.) 07/30/2023 09:58 [facility] [place] TYPE: Emergency COMPLAINT: - PANICK ATTACK 07/29/2023 09:21 [facility] [place] TYPE: Emergency COMPLAINT: - ANXIETY 07/27/2023 12:[address] [facility] [place] TYPE: Emergency COMPLAINT: - ANXIETY DIAGNOSES: - Allergy status to other drugs, medicaments and biological substances - Anxiety disorder, unspecified - Nicotine dependence, unspecified, uncomplicated - Other mcc (current) drug therapy 07/14/2023 09:12 [facility] [place] TYPE: Emergency COMPLAINT: - ABD PAIN, DIFFICULTY BREATHING DIAGNOSES: - Allergy status to other drugs, medicaments and biological substances - Anxiety disorder, unspecified - Nicotine dependence, unspecified, uncomplicated - Other mcc (current) drug therapy - Unspecified asthma, uncomplicated 07/13/2023 11:[address] [facility] [address] [facility] [place] TYPE: Emergency COMPLAINT: - ABDOMINAL PAIN DIAGNOSES: - Allergy status to other drugs, medicaments and biological substances - Anxiety disorder, unspecified - Nicotine dependence, unspecified, uncomplicated - Other mcc (current) drug therapy 07/12/2023 14:22 [facility] [place] TYPE: Emergency COMPLAINT: - ABDOMINAL PAIN DIAGNOSES: - Allergy status to other drugs, medicaments and biological substances - Nicotine dependence, unspecified, uncomplicated - Other mcc (current) drug therapy - Panic disorder [episodic paroxysmal anxiety] - Unspecified asthma, uncomplicated - Upper abdominal pain, unspecified 07/05/2023 06:44 [facility] [place] TYPE: Emergency COMPLAINT: - PANIC ATTACK DIAGNOSES: - Allergy status to other drugs, medicaments and biological substances - Anxiety disorder, unspecified - Nicotine dependence, unspecified, uncomplicated - Other mcc (current) drug therapy - Unspecified asthma, uncomplicated 07/03/2023 08:44 [facility] [place] TYPE: Emergency COMPLAINT: - PANIC ATTACK DIAGNOSES: - Allergy status to other drugs, medicaments and biological substances - Anxiety disorder, unspecified - Nicotine dependence, unspecified, uncomplicated - Other intermediate designer (current) drug therapy - Unspecified asthma, uncomplicated 04/13/2023 08:16 [facility] [place] TYPE: Emergency COMPLAINT: - ANXIETY, PANIC ATTACK DIAGNOSES: - Allergy status to other drugs, medicaments and biological substances - Anxiety disorder, unspecified - Nicotine dependence, unspecified, uncomplicated - Panic disorder [episodic paroxysmal anxiety] 04/12/2023 11:23 [facility] [place] TYPE: Emergency COMPLAINT: - PANIC ATTACK 04/11/2023 11:09 [facility] [place] TYPE: Emergency COMPLAINT: - ANXIETY DIAGNOSES: - Allergy status to other drugs, medicaments and biological substances - Anxiety disorder, unspecified - Cough, unspecified - Nicotine dependence, unspecified, uncomplicated 12/24/2022 21:19 [facility] [place] TYPE: Emergency COMPLAINT: - OD INTENTIONAL DIAGNOSES: - Alcohol abuse with intoxication, unspecified - Allergy status to other drugs, medicaments and biological substances - Blood alcohol level of 120-199 mg/100 ml - Nicotine dependence, unspecified, uncomplicated - Other mcc (current) drug therapy - Unspecified asthma, uncomplicated INPATIENT VISIT TRACKING (12 MO.) No inpatient visits to display in this time frame [id number]
[2023-07-30] MEDS ORDERED: VISTARIL50 MG PO (10:35)
[2023-07-30 11:45] VITALS: BP 108/83
== END 2023-07-30 11:46 | disposition home or self-care (01) ==
LOC: ED 09:58
DX: F41.0 Panic disorder [episodic paroxysmal anxiety] (principal); J45.909 Unspecified asthma, uncomplicated; F17.200 Nicotine dependence, unspecified, uncomplicated; Z88.8 Allergy status to other drugs, medicaments and biological substances; Z79.899 Other long term (current) drug therapy
CPT/HCPCS: 96374; 99283-25; J1200

== ENCOUNTER 2023-07-31 08:45 | Emergency (ER) | payer OTHER ==
[~2023-07-31] VITALS: Ht 160 cm; Wt 81.8 kg
[2023-07-31 08:50] VITALS: BP 123/83
== END 2023-07-31 09:12 | disposition left against medical advice (07) ==
LOC: ED 08:45
DX: F41.0 Panic disorder [episodic paroxysmal anxiety] (principal); J45.909 Unspecified asthma, uncomplicated; F32.A Depression, unspecified; F17.200 Nicotine dependence, unspecified, uncomplicated; Z88.8 Allergy status to other drugs, medicaments and biological substances; Z86.19 Personal history of other infectious and parasitic diseases; Z79.899 Other long term (current) drug therapy
CPT/HCPCS: 99283

== ENCOUNTER 2023-08-02 03:50 | Emergency (ER) | payer OTHER ==
[~2023-08-02] VITALS: Ht 160 cm; Wt 81.6 kg
--- OUTSIDE RECORDS SUMMARY | 2023-08-02 03:52 | XMS ---
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 - Patient with suicidal and/or homicidal ideations eloped. - Patient eloped with IV in place. Details: PATIENT LWBS CRITERIA MET - 6 ED Visits in 6 Months - [facility] - 2 Visits in 30 Days CARE PROVIDERS GINNY THOMSON Watch Band Assembler/Bituminous Distributor Operator 05/21/2023-Naomie LUCY PHONE: [phone] -Mitesh- Dentist: Associate Artistic Director [facility] PHONE: [phone] Rober has no Care Guidelines for this patient. E.D. VISIT COUNT (12 MO.) 14 [facility] [place] TOTAL 14 NOTE: Visits indicate total known visits. ED/UCC VISIT TRACKING (12 MO.) 08/02/2023 03:51 [facility] [place] TYPE: Emergency COMPLAINT: - ANXIETY 07/31/2023 08:45 [facility] [place] TYPE: Emergency COMPLAINT: - PANIC ATTACKS 07/30/2023 09:58 [facility] [place] TYPE: Emergency COMPLAINT: - PANICK ATTACK 07/29/2023 09:21 [facility] [place] TYPE: Emergency COMPLAINT: - ANXIETY DIAGNOSES: - Allergy status to other drugs, medicaments and biological substances - Anxiety disorder, unspecified - Nicotine dependence, unspecified, uncomplicated - Other joint terminal attack controller (current) drug therapy - Unspecified asthma, uncomplicated 07/27/2023 12:09 [place] [place] TYPE: Emergency COMPLAINT: - ANXIETY DIAGNOSES: - Allergy status to other drugs, medicaments and biological substances - Anxiety disorder, unspecified - Nicotine dependence, unspecified, uncomplicated - Other joint terminal attack controller (current) drug therapy 07/14/2023 09:12 [facility] [place] TYPE: Emergency COMPLAINT: - ABD PAIN, DIFFICULTY BREATHING DIAGNOSES: - Allergy status to other drugs, medicaments and biological substances - Anxiety disorder, unspecified - Nicotine dependence, unspecified, uncomplicated - Other joint terminal attack controller (current) drug therapy - Unspecified asthma, uncomplicated 07/13/2023 11:08 [facility] [place] TYPE: Emergency COMPLAINT: - ABDOMINAL PAIN DIAGNOSES: - Allergy status to other drugs, medicaments and biological substances - Anxiety disorder, unspecified - Nicotine dependence, unspecified, uncomplicated - Other usp (current) drug therapy 07/12/2023 14:22 [facility] [place] [place] TYPE: Emergency COMPLAINT: - ABDOMINAL PAIN DIAGNOSES: - Allergy status to other drugs, medicaments and biological substances - Nicotine dependence, unspecified, uncomplicated - Other joint terminal attack controller (current) drug therapy - Panic disorder [episodic paroxysmal anxiety] - Unspecified asthma, uncomplicated - Upper abdominal pain, unspecified 07/05/2023 06:44 [facility] [address] [place] [place] TYPE: Emergency COMPLAINT: - PANIC ATTACK DIAGNOSES: - Allergy status to other drugs, medicaments and biological substances - Anxiety disorder, unspecified - Nicotine dependence, unspecified, uncomplicated - Other joint terminal attack controller (current) drug therapy - Unspecified asthma, uncomplicated 07/03/2023 08:44 [facility] [place] TYPE: Emergency COMPLAINT: - PANIC ATTACK DIAGNOSES: - Allergy status to other drugs, medicaments and biological substances - Anxiety disorder, unspecified - Nicotine dependence, unspecified, uncomplicated - Other joint terminal attack controller (current) drug therapy - Unspecified asthma, uncomplicated [...] - Nicotine dependence, unspecified, uncomplicated - Other usp (current) drug therapy - Unspecified asthma, uncomplicated INPATIENT VISIT TRACKING (12 MO.) No inpatient visits to display in this time frame [id number]
[2023-08-02 04:37] LABS: BASOPHILS 0.5 % (0-2); MCHC 33.9 g/dl (30-36)
[2023-08-02 04:42] LABS: EOSINOPHILS 2.7 % (0-6); HEMATOCRIT 44.6 % (35.0-50.0); HEMOGLOBIN 15.1 g/dL (12.0-18.0); LYMPHOCYTES 17.7 % (24-44); MCH 32.3 (27-36); MCV 95.2 fl (81-99); MONOCYTES 5.6 % (0-12); NEUTROPHILS 73.5 % (39-80); PLATELET COUNT 266 K/uL (140-440); RBC 4.68 M/ul (4.3-5.7); RDW 13.7 (10.5-15.0)
[2023-08-02 04:50] LABS: ALBUMIN 3.7 g/dL (3.4-5.0); ALBUMIN/GLOBULIN RATIO 0.93 (1.1-2.4); BILIRUBIN, TOTAL 0.9 ng/dL (0.2-1.0); BUN/CREATININE RATIO 13.79 (6.0-28.6); CALCIUM 9.6 mg/dL (8.5-10.1); CREATININE, SERUM 0.87 mg/dL (0.55-1.02); PROTEIN, TOTAL 7.7 g/dL (6.4-8.2)
[2023-08-02] MEDS ORDERED: DOXEPIN HCL25 MG PO (05:03)
[2023-08-02 05:16] VITALS: BP 111/74
== END 2023-08-02 05:26 | disposition home or self-care (01) ==
LOC: ED 03:50
PROVIDERS: Family Medicine
DX: F41.0 Panic disorder [episodic paroxysmal anxiety] (principal); J45.909 Unspecified asthma, uncomplicated; F32.A Depression, unspecified; F17.200 Nicotine dependence, unspecified, uncomplicated; Z88.8 Allergy status to other drugs, medicaments and biological substances; Z79.899 Other long term (current) drug therapy
CPT/HCPCS: 36415; 71045; 80053; 85025; A9270

== ENCOUNTER 2024-01-22 00:59 | Emergency (ER) | payer OTHER ==
[~2024-01-22] VITALS: Ht 160 cm; Wt 82.6 kg
[~2024-01-22 00:59] MED LIST changes: +CYCLOBENZAPRINE5 MG PO; +DOXEPIN HCL25 MG PO
--- OUTSIDE RECORDS SUMMARY | 2024-01-22 01:02 | XMS ---
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 - Patient eloped before treatment completed. - Patient with suicidal and/or homicidal ideations eloped. Details: Patient LWBS Elopement at [facility] 07/31/2023 08:45 - Patient eloped with IV in place. - Patient eloped before treatment completed. - Patient with suicidal and/or homicidal ideations eloped. Details: Patient left AMA
[2024-01-22] MEDS ORDERED: LACTATED RINGER'S 1,000 ML IV ONE (01:15)
[2024-01-22] MEDS ORDERED: diphenhydrAMINE HCL 50 MG/ML VIAL IV ONE ×2 (01:15)
[2024-01-22] MEDS ORDERED: diphenhydrAMINE HCL 50 MG CAP PO ONE (01:30)
[2024-01-22] MEDS ORDERED: diphenhydrAMINE HCL 50 MG/ML VIAL IM ONE (01:30)
[2024-01-22 01:39] LABS: BASOPHILS 0.2 % (0-2); EOSINOPHILS 1.2 % (0-6); HEMATOCRIT 45.8 % (35.0-50.0); HEMOGLOBIN 15.7 g/dL (12.0-18.0); LYMPHOCYTES 10.1 % (24-44); MCH 31.5 (27-36); MCHC 34.3 g/dl (30-36); MCV 91.8 fl (81-99); NEUTROPHILS 82.5 % (39-80); PLATELET COUNT 315 K/uL (140-440); RBC 4.99 M/ul (4.3-5.7); RDW 12.9 (10.5-15.0)
[2024-01-22] MEDS ORDERED: LORazepam 2 MG/ML VIAL IV ONE (01:45)
[2024-01-22 01:55] LABS: ALBUMIN/GLOBULIN RATIO 0.89 (1.1-2.4); ANION GAP 21.1 (7-21); BILIRUBIN, TOTAL 1.3 ng/dL (0.2-1.0); BUN/CREATININE RATIO 18.18 (6.0-28.6); CALCIUM 9.3 mg/dL (8.5-10.1); CREATININE, SERUM 0.99 mg/dL (0.55-1.02); MAGNESIUM 1.7 mg/dL (1.8-2.4); POTASSIUM 3.1 mmol/L (3.5-5.1); PROTEIN, TOTAL 8.5 g/dL (6.4-8.2)
[2024-01-22] MEDS ORDERED: MAGNESIUM OXIDE 400 MG TABLET PO ONE (02:45)
[2024-01-22] MEDS ORDERED: POTASSIUM CHLORIDE 10 MEQ TABCR PO ONE (02:45)
[2024-01-22] MEDS ORDERED: IBUPROFEN 800 MG TAB PO ONE (03:00)
[2024-01-22 03:01] LABS: BILIRUBIN, URINE NEGATIVE (negative); BLOOD/HGB, URINE SMALL (Negative); KETONE, URINE NEGATIVE (Negative); LEUK ESTERASE, URINE NEGATIVE (negative); NITRITE, URINE NEGATIVE (negative)
[2024-01-22 03:13] LABS: COLLECTION TYPE, URINE CLEAN CATCH; CRYSTALS, URINE NONE SEEN (0-1+); EPITHELIAL CELLS, URINE SQUAMOUS 1+ /lpf (0-1+); REFLEX CULTURE, URINE No (No)
[2024-01-22 03:14] LABS: BACTERIA, URINE 1+ /hpf (negative)
[2024-01-22 03:15] LABS: CASTS, URINE NONE SEEN \\lpf
[2024-01-22 03:22] LABS: AMPHETAMINES, URINE NEGATIVE (NEGATIVE); BARBITURATES, URINE NEGATIVE (NEGATIVE); BENZODIAZEPINE, URINE NEGATIVE (NEGATIVE); BUPRENORPHINE, URINE NEGATIVE (NEGATIVE); CANNABINOID, URINE POSITIVE (NEGATIVE); COCAINE, URINE NEGATIVE (NEGATIVE); ECSTASY, URINE NEGATIVE (NEGATIVE); FENTANYL, URINE POSITIVE (NEGATIVE); METHADONE, URINE NEGATIVE (NEGATIVE); OPIATES, URINE NEGATIVE (NEGATIVE); OXYCODONE, URINE NEGATIVE (NEGATIVE); PHENCYCLIDINE, URINE NEGATIVE (NEGATIVE)
[2024-01-22 03:51] VITALS: BP 110/88
[2024-01-26] MEDS ORDERED: GEODON20 MG PO (09:29)
[2024-01-29] MEDS ORDERED: FLONASE ALLERG9.9 ML NAS (16:00)
[2024-02-12] MEDS ORDERED: CLONAZEPAM0.5 MG PO (08:54)
== END 2024-01-22 03:56 | disposition home or self-care (01) ==
LOC: ED 00:59
PROVIDERS: Internal Medicine
DX: F41.0 Panic disorder [episodic paroxysmal anxiety] (principal); D72.829 Elevated white blood cell count, unspecified; J45.909 Unspecified asthma, uncomplicated; F41.9 Anxiety disorder, unspecified; F32.A Depression, unspecified; M32.9 Systemic lupus erythematosus, unspecified; F17.200 Nicotine dependence, unspecified, uncomplicated; Z88.8 Allergy status to other drugs, medicaments and biological substances; Z79.899 Other long term (current) drug therapy
CPT/HCPCS: 36415; 71045; 80053; 80307; 81001; 83735; 84703; 85025; 96361; 96374; 99284-25; A9270; J1200; J2060; J7121

== ENCOUNTER 2024-05-10 07:50 | Day surgery (SDC) | payer OTHER ==
[2024-05-08 14:42] VITALS: BP 101/65
[~2024-05-10] VITALS: Ht 160 cm; Wt 77.0 kg
[~2024-05-10 07:50] MED LIST changes: +FLONASE ALLERG9.9 ML NAS; +GEODON20 MG PO; +IBLOOD GLUCOSE TEST STRIP 1 EA TEST VI PRN; +LACTATED RINGER'S 1,000 ML IV SCH; +LIDOCAINE HCL 1% 5 ML SDV INJ ONE
[2024-05-10 08:39] VITALS: BP 95/61
[2024-05-10] MEDS ORDERED: LIDOCAINE HCL 2% 5 ML SDV ONE (09:28)
[2024-05-10] MEDS ORDERED: fentaNYL citrate 100 MCG/2 ML VIAL ONE (09:28)
[2024-05-10] MEDS ORDERED: propofoL 200 MG/20 ML VIAL ONE (09:28)
--- NOTE | 2024-05-10 10:40 | NUR ---
05/10/24 1040 Marina Mancilla 1007 PT ARRIVED IN PACU SLEEPY. ABD SOFT. 1020 AWAKENS TO VERBAL STIMULI, THEN FALLS BACK TO SLEEP. 1040 RESTING. REU.
[2024-05-10 11:22] VITALS: BP 88/60
--- NOTE | 2024-05-10 13:58 | OR ---
[facility] [address] [place] [place], [place] [address] Signed DATE OF OPERATION: 05/10/2024 SURGEON: Slick Hankins MD PREOPERATIVE DIAGNOSES: 1. Anorexia with weight loss of 30 pounds over several months. 2. Nausea. 3. Diarrhea. 4. Fatty liver. 5. Treated hepatitis C virus. 6. History of cholecystectomy. POSTOPERATIVE DIAGNOSES: 1. Mild diffuse gastritis. 2. Unremarkable colonoscopy. PROCEDURES: 1. EGD with CLOtest and biopsies of the duodenum and antrum. 2. Colonoscopy without biopsy. ESTIMATED BLOOD LOSS: None. INDICATIONS: Nelly is a 49-year-old obese female, asked to see me for both upper and lower endoscopy. She has had a difficult life and has a lot of mental health issues. She has done very well to get herself off heroin for quite a few years. She does use some marijuana to help I think mainly go to sleep with some of her anxiety. She said without the marijuana she does not live at all. She said her appetite is horrible. She has nausea and diarrhea. She did have her gallbladder removed previously. She has lost about 30 pounds over several months. She was treated for hepatitis C virus a few years ago. She said her counts were unremarkable. She has been asked to see me as a local general surgeon for consideration of upper and lower endoscopy. She tells me there is no family history of colon cancer or polyps. In the office, I gave her a pamphlet on both upper and lower endoscopy. We reviewed the nature of the two tests. There is risk including, but not limited to gas bloating, crampy abdominal pain, bleeding, perforation requiring surgery, and missed diagnosis. We also reviewed the written instructions for the bowel prep line by line. She also understands the need for monitored anesthesia care with propofol infusion given her daily use of marijuana and her severe anxiety and other issues. She had expressed understanding and wished to proceed. Electronically Signed By: SLICK HANKINS MD 05/10/24 1358 PATIENT NAME: NELLY MIRANDA OPERATIVE REPORT DATE OF : 75 REPORT #: [id number] PHYSICIAN: SLICK HANKINS MD PCP: JOSE A EDOUARD PA-C REPORT IS CONFIDENTIAL AND NOT TO BE RELEASED WITHOUT AUTHORIZATION [facility] [address] [place] [place], [place] [address] Signed DESCRIPTION OF PROCEDURE: Nelly was taken into our endoscopy suite and placed in the supine semi-recumbent position. She was given monitored anesthesia care with propofol infusion per our nurse three knife trimmer. The posterior oropharynx was anesthetized with lidocaine spray. Bite block was utilized for the case. The adult gastroscope was introduced and advanced out into the 3rd portion of the duodenum without difficulty. The duodenum and pyloric channel were healthy. We could see the ampulla of Vater and there was nice clear bile coming through the ampulla. We took a single biopsy of the duodenum because of the history of diarrhea. There were no ulcerations in the pyloric bulb nor the stomach. She does have some mild diffuse erythematous changes in the stomach, which is quite common for people who smoke. We went ahead and took a biopsy of the antrum for pathologic review along with CLOtest. Upon retroflexion of the scope, there was no evidence of hiatal hernia. The scope was withdrawn up through the area of the GE junction, which was compliant without stricture. We did not specifically see any gastric or esophageal varices. Very minimal irritation around the Z-line. There was no Richards's mucosa. No distal esophagitis. The middle and upper esophagus were unremarkable. After this, the gas was suctioned out and the gastroscope removed. Nelly tolerated the procedure quite well. Nelly was rotated into the left lateral decubitus position. She was maintained on IV propofol per our nurse three knife trimmer. A digital rectal exam was performed and this was unremarkable. She had good sphincter tone. No external hemorrhoids. No masses. The adult colonoscope was introduced and advanced all around into the cecum under direct visualization of the camera without difficulty. Her prep was quite good. We could easily see the appendiceal orifice and the ileocecal valve. The scope was then slowly withdrawn. We saw no pathology throughout the entire colon or rectum. Upon retroflexion of the scope, there was no additional pathology noted above the anal canal. After this, the gas was suctioned out and the colonoscope removed. Nelly tolerated the procedure quite well. RECOMMENDATIONS: I will see Nelly back in my office in 7 to 14 days to review her results. She had told me her father was shot and killed last year and it has been a very stressful year. That may be contributing as much as anything else. Slick Hankins MD Electronically Signed By: SLICK HANKINS MD 05/10/24 1358 PATIENT NAME: NELLY MIRANDA OPERATIVE REPORT DATE OF : 75 REPORT #: [id number] PHYSICIAN: SLICK HANKINS MD PCP: JOSE A EDOUARD PA-C REPORT IS CONFIDENTIAL AND NOT TO BE RELEASED WITHOUT AUTHORIZATION [facility] [address] [place], [place] [address] Signed ALB/MODL /[id number] cc: MD Jose A Cutler PA Copies: SLICK HANKINS MD ~ Electronically Signed By: SLICK HANKINS MD 05/10/24 1358 PATIENT NAME: NELLY MIRANDA OPERATIVE REPORT DATE OF : 75 REPORT #: [id number] PHYSICIAN: SLICK HANKINS MD PCP: JOSE A EDOUARD PA-C REPORT IS CONFIDENTIAL AND NOT TO BE RELEASED WITHOUT AUTHORIZATION
--- NOTE | 2024-05-12 11:30 | PATH ---
[facility] [address] [facility] [place] [address] Signed SPECIMEN(S): A DUODENAL BIOPSY SPECIMEN(S): B ANTRUM/PYLORUS BIOPSY SPECIMEN SOURCE: A. DUODENAL BIOPSY B. ANTRUM/PYLORUS BIOPSY CLINICAL HISTORY: History of diarrhea, nausea, weight loss, fatty liver. Post: Gastritis. FINAL PATHOLOGIC DIAGNOSIS: A. Duodenum, biopsy: - Mild chronic duodenitis, negative for active inflammation or significant villous blunting. B. Antrum/pylorus, biopsy: - Mild chronic erosive gastritis, negative for active inflammation. - No H. pylori bacteria are detected by HE stain. AMB MICROSCOPIC EXAMINATION: Histologic sections of all submitted blocks are examined by light microscopy. These findings, together with the gross examination, support the pathologic diagnosis. GROSS DESCRIPTION: A. The specimen, labeled and designated "Baldo Ferguson, duodenal biopsy," is received in formalin and consists of one valencia soft tissue fragment, 0.5 cm. Entirely submitted in (A1). B. The specimen, labeled and designated "Baldo Ferguson, antrum/Pylorus biopsy," is received in formalin and consists of one valencia soft tissue fragment, 0.4 cm. Entirely submitted in (B1). HS (under the direct supervision of a pathologist) The Gross Description was prepared using a voice recognition system. The report was reviewed for accuracy; however, sound-alike word errors, addition and/or deletions may occur. If there is any question about this report, please contact Client Services. ADDITIONAL NOTES: Immunohistochemical and/or in situ hybridization studies if performed in this case included appropriate positive controls that reacted as expected. This test was developed and its performance PATIENT NAME: ANTHONY FERGUSON PATHOLOGY DATE OF : 75 REPORT #: [id number] PHYSICIAN: ROZINA SHAW PCP: JOSE A EDOUARD PA-C REPORT IS CONFIDENTIAL AND NOT TO BE RELEASED WITHOUT AUTHORIZATION [facility] [address] [place], [place] [address] Signed characteristics determined by [facility]. It has not been cleared or approved by the U.S. Food and Drug Administration. The FDA has determined that such clearance or approval is not necessary. This test is used for clinical purposes. It should not be regarded as investigational or for research. [facility] is certified under the Clinical Laboratory Improvement Amendments of 1988 (CLIA) as qualified to perform high complexity clinical laboratory testing. PERFORMING LABORATORY: Technical component was performed by [facility], [address] [place] [id number] (CLIA# [id number]). Diagnostician: Malika Rudolph MD Pathologist Electronically Signed 05/12/2024 Copies: ~ PATIENT NAME: ANTHONY FERGUSON PATHOLOGY DATE OF : 75 REPORT #: [id number] PHYSICIAN: ROZINA PATHOLOGY PCP: JOSE A EDOUARD PA-C REPORT IS CONFIDENTIAL AND NOT TO BE RELEASED WITHOUT AUTHORIZATION
== END 2024-05-10 11:01 ==
LOC: OPS 07:50 → DS 07:50 → OPS 09:30
PROVIDERS: ATTEND Colon & Rectal Surgery
PROC: 0DB98ZX Excision of Duodenum, Via Natural or Artificial Opening Endoscopic, Diagnostic (ICD-10-PCS; principal; 2024-05-10 09:30)
PROC: 0DJD8ZZ Inspection of Lower Intestinal Tract, Via Natural or Artificial Opening Endoscopic (ICD-10-PCS; 2024-05-10 09:30)
DX: K29.50 Unspecified chronic gastritis without bleeding (principal); K29.80 Duodenitis without bleeding; R19.7 Diarrhea, unspecified; K76.0 Fatty (change of) liver, not elsewhere classified; R63.0 Anorexia; F17.210 Nicotine dependence, cigarettes, uncomplicated; F12.90 Cannabis use, unspecified, uncomplicated; I10 Essential (primary) hypertension; E78.5 Hyperlipidemia, unspecified; E66.9 Obesity, unspecified; Z88.8 Allergy status to other drugs, medicaments and biological substances; Z79.899 Other long term (current) drug therapy; Z68.30 Body mass index [BMI] 30.0-30.9, adult
CPT/HCPCS: 00813; 36415; 84703; 87077; J2001; J2704; J3010; J7121

== ENCOUNTER 2024-06-08 14:22 | Emergency (ER) | payer OTHER ==
[~2024-06-08] VITALS: Ht 160 cm; Wt 77.3 kg
[~2024-06-08 14:22] MED LIST changes: -IBLOOD GLUCOSE TEST STRIP 1 EA TEST VI PRN; -LACTATED RINGER'S 1,000 ML IV SCH; -LIDOCAINE HCL 1% 5 ML SDV INJ ONE
--- OUTSIDE RECORDS SUMMARY | 2024-06-08 14:24 | XMS ---
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 - Patient eloped before treatment completed. - Patient with suicidal and/or homicidal ideations eloped. Details: Patient LWBS Elopement at [facility] 07/31/2023 08:45 - Patient eloped with IV in place. - Patient eloped before treatment completed. - Patient with suicidal and/or homicidal ideations eloped. Details: Patient left AMA
[2024-06-08] MEDS ORDERED: SODIUM CHLORIDE 0.9% 1,000 ML IV ONE (14:45)
[2024-06-08] MEDS ORDERED: LORazepam 2 MG/ML VIAL IV ONE (14:45)
[2024-06-08] MEDS ORDERED: methylPREDNISolone SOD SUCC 125 MG/2 ML VIAL IV ONE (14:45)
[2024-06-08] MEDS ORDERED: diphenhydrAMINE HCL 50 MG/ML VIAL IV ONE (14:45)
[2024-06-08] MEDS ORDERED: HYDROmorphone HCL 1 MG/ML SYR IV ONE (14:45)
[2024-06-08 14:57] LABS: HEMATOCRIT 40.1 % (35.0-50.0); HEMOGLOBIN 13.8 g/dL (12.0-18.0); MCH 31.6 (27-36); MCHC 34.4 g/dl (30-36); MCV 91.9 fl (81-99); PLATELET COUNT 258 K/uL (140-440); RBC 4.36 M/ul (4.3-5.7); RDW 13.4 (10.5-15.0)
[2024-06-08 15:12] LABS: ALBUMIN 3.8 g/dL (3.4-5.0); ALBUMIN/GLOBULIN RATIO 1.06 (1.1-2.4); ANION GAP 13.3 (7-21); BILIRUBIN, TOTAL 0.8 ng/dL (0.2-1.0); BUN/CREATININE RATIO 14.94 (6.0-28.6); CALCIUM 9.3 mg/dL (8.5-10.1); CREATININE, SERUM 0.87 mg/dL (0.55-1.02); POTASSIUM 3.3 mmol/L (3.5-5.1); PROTEIN, TOTAL 7.4 g/dL (6.4-8.2)
[2024-06-08 15:13] LABS: BILIRUBIN, URINE NEGATIVE (negative); BLOOD/HGB, URINE LARGE (Negative); KETONE, URINE TRACE (Negative); LEUK ESTERASE, URINE TRACE (negative); NITRITE, URINE NEGATIVE (negative)
[2024-06-08 15:19] LABS: LYMPHOCYTES, MANUAL DIFF 9; NEUTROPHILS, MANUAL DIFF 91
[2024-06-08 15:22] LABS: BACTERIA, URINE RARE /hpf (negative); CASTS, URINE NONE SEEN \\lpf; COLLECTION TYPE, URINE CLEAN CATCH; CRYSTALS, URINE NONE SEEN (0-1+); EPITHELIAL CELLS, URINE SQUAMOUS 1+ /lpf (0-1+); RED BLOOD CELLS, URINE 21-40 /hpf (0-5); REFLEX CULTURE, URINE No (No); WHITE BLOOD CELLS, URINE 0-1 /HPF (0-5)
[2024-06-08] MEDS ORDERED: VENTOLIN HFA18 GM INH (16:38)
[2024-06-08 16:45] VITALS: BP 105/74
== END 2024-06-08 16:45 | disposition home or self-care (01) ==
LOC: ED 14:22
PROVIDERS: Emergency Medicine
DX: R11.2 Nausea with vomiting, unspecified (principal); J45.909 Unspecified asthma, uncomplicated; F17.200 Nicotine dependence, unspecified, uncomplicated; Z79.899 Other long term (current) drug therapy; Z88.8 Allergy status to other drugs, medicaments and biological substances
CPT/HCPCS: 36415; 74176; 80053; 81001; 83690; 84703; 85025; 96361; 96374; 96375; 99284-25; J1170; J1200; J2060; J2919; J7030

== ENCOUNTER 2024-06-09 09:18 | Emergency (ER) | payer OTHER ==
[~2024-06-09] VITALS: Ht 160 cm; Wt 77.3 kg
--- OUTSIDE RECORDS SUMMARY | 2024-06-09 09:18 | XMS ---
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 - Patient eloped before treatment completed. - Patient with suicidal and/or homicidal ideations eloped. Details: Patient LWBS Elopement at [facility] 07/31/2023 08:45 - Patient eloped with IV in place. - Patient eloped before treatment completed. - Patient with suicidal and/or homicidal ideations eloped. Details: Patient left AMA
[2024-06-09] MEDS ORDERED: diphenhydrAMINE HCL 50 MG/ML VIAL IM ONE (09:30)
[2024-06-09 10:17] VITALS: BP 146/88
== END 2024-06-09 10:17 | disposition home or self-care (01) ==
LOC: ED 09:18
DX: F41.9 Anxiety disorder, unspecified (principal); J45.909 Unspecified asthma, uncomplicated; F17.200 Nicotine dependence, unspecified, uncomplicated; Z88.8 Allergy status to other drugs, medicaments and biological substances; Z79.899 Other long term (current) drug therapy
CPT/HCPCS: 96372; 99283-25; J1200

== ENCOUNTER 2024-08-05 10:22 | Emergency (ER) | payer OTHER ==
[~2024-08-05] VITALS: Ht 160 cm; Wt 80.0 kg
--- OUTSIDE RECORDS SUMMARY | 2024-08-05 10:29 | XMS ---
PreManage Notification: ANTHONY MIRANDA Security Watch Supervisor Events 2 event(s) in the past 18 [...]
[2024-08-05] MEDS ORDERED: diphenhydrAMINE HCL 50 MG/ML VIAL IM ONE (10:30)
[2024-08-05 11:11] VITALS: BP 101/74
== END 2024-08-05 11:11 | disposition home or self-care (01) ==
LOC: ED 10:22
DX: F41.9 Anxiety disorder, unspecified (principal); R11.2 Nausea with vomiting, unspecified; J45.909 Unspecified asthma, uncomplicated; F17.200 Nicotine dependence, unspecified, uncomplicated; Z88.8 Allergy status to other drugs, medicaments and biological substances; Z79.899 Other long term (current) drug therapy
CPT/HCPCS: 96372; 99283; J1200

== ENCOUNTER 2024-08-05 20:13 | Emergency (ER) | payer OTHER ==
[~2024-08-05] VITALS: Ht 160 cm; Wt 76.2 kg
--- OUTSIDE RECORDS SUMMARY | 2024-08-05 20:15 | XMS ---
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 - Patient eloped before treatment completed. - Patient with suicidal and/or homicidal ideations eloped. Details: Patient LWBS Elopement at [facility] 07/31/2023 08:45 - Patient eloped with IV in place. - Patient eloped before treatment completed. - Patient with suicidal and/or homicidal ideations eloped. Details: Patient left AMA
[2024-08-05] MEDS ORDERED: OLANZapine 10 MG VIAL IM ONE (20:30)
[2024-08-05] MEDS ORDERED: diphenhydrAMINE HCL 50 MG/ML VIAL IM ONE (20:30)
[2024-08-05 21:52] VITALS: BP 106/69
== END 2024-08-05 21:45 | disposition home or self-care (01) ==
LOC: ED 20:13
DX: F41.0 Panic disorder [episodic paroxysmal anxiety] (principal); J45.909 Unspecified asthma, uncomplicated; F17.200 Nicotine dependence, unspecified, uncomplicated; Z88.8 Allergy status to other drugs, medicaments and biological substances; Z79.899 Other long term (current) drug therapy
CPT/HCPCS: 96372; 99283-25; J1200

== ENCOUNTER 2024-10-19 02:32 | Emergency (ER) | payer OTHER ==
--- OUTSIDE RECORDS SUMMARY | 2024-10-19 02:35 | XMS ---
PreManage Notification: ANTHONY MIRANDA Security Chocolate Refining Roller Events 2 event(s) in the past 18 [...]
[2024-10-19] MEDS ORDERED: LORazepam 2 MG/ML VIAL IM ONE (02:45)
[2024-10-19] MEDS ORDERED: droPERidol 5 MG/2 ML VIAL IV ONE (03:00)
[2024-10-19] MEDS ORDERED: SODIUM CHLORIDE 0.9% 1,000 ML IV ONE (03:00)
[2024-10-19 03:55] VITALS: BP 00/00
== END 2024-10-19 03:55 | disposition left against medical advice (07) ==
LOC: ED 02:32
DX: F41.9 Anxiety disorder, unspecified (principal); R11.2 Nausea with vomiting, unspecified; F17.200 Nicotine dependence, unspecified, uncomplicated; Z88.8 Allergy status to other drugs, medicaments and biological substances; Z79.899 Other long term (current) drug therapy; Z53.29 Procedure and treatment not carried out because of patient's decision for other reasons
CPT/HCPCS: 80053; 83735; 85025; 87502; 96372; 99283; J2060; U0002

== ENCOUNTER 2024-10-28 12:12 | Emergency (ER) | payer OTHER ==
[~2024-10-28] VITALS: Ht 160 cm; Wt 88.0 kg
--- OUTSIDE RECORDS SUMMARY | 2024-10-28 12:19 | XMS ---
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 - Patient eloped before treatment completed. - Patient with suicidal and/or homicidal ideations eloped. Details: Patient LWBS Elopement at [facility] 07/31/2023 08:45 - Patient eloped with IV in place. - Patient eloped before treatment completed. - Patient with suicidal and/or homicidal ideations eloped. Details: Patient left AMA
[2024-10-28] MEDS ORDERED: diphenhydrAMINE HCL 50 MG/ML VIAL IM ONE (12:45)
[2024-10-28] MEDS ORDERED: HALOPERIDOL LACTATE 5 MG/ML VIAL IM ONE (12:45)
[2024-10-28] MEDS ORDERED: IBUPROFEN 600 MG TAB PO ONE (13:30)
[2024-10-28] MEDS ORDERED: clonazePAM 1 MG TAB PO ONE (13:30)
[2024-10-28] MEDS ORDERED: HYDROXYZINE HCL25 MG PO (15:30)
[2024-10-28 15:34] VITALS: BP 114/62
== END 2024-10-28 15:34 | disposition home or self-care (01) ==
LOC: ED 12:12
DX: F41.9 Anxiety disorder, unspecified (principal); J45.909 Unspecified asthma, uncomplicated; F17.200 Nicotine dependence, unspecified, uncomplicated; Z88.8 Allergy status to other drugs, medicaments and biological substances; Z79.899 Other long term (current) drug therapy
CPT/HCPCS: 96372; 99283; A9270; J1200; J1630

== ENCOUNTER 2025-09-10 12:10 | Emergency (ER) | payer OTHER ==
[~2025-09-10] VITALS: Ht 160 cm; Wt 80.0 kg
--- OUTSIDE RECORDS SUMMARY | 2025-09-10 12:12 | XMS ---
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 PHONE: [phone] -[facility]- Dentist: Manager Delivery [facility] PHONE: [phone] [facility]: [facility] PHONE: [phone] ANTHONY Mendoza [facility] Current PHONE: [phone] JOSE A EDOUARD Current PHONE: [phone] [place] has no Care Guidelines for this patient. EWarren VISIT COUNT (12 MO.) 3 GI[address] Radha Tabor (Adrianna Rodas) TOTAL 5 NOTE: Visits indicate total known visits. ED/UCC VISIT TRACKING (12 MO.) 09/10/2025 12:11 GIOVANI Chua TYPE: Emergency COMPLAINT: - MEDICAL CLEARANCE 05/16/2025 08:50 [facility] Adrianna ALANIS ([place]) TYPE: Emergency DIAGNOSES: - Acute bronchitis, unspecified - Encounter for issue of repeat prescription - Tobacco use - Unspecified asthma, uncomplicated - Cough - flu like symptoms - Shortness of Breath 03/11/2025 19:52 [facility] Adrianna ALANIS ([place]) TYPE: Emergency DIAGNOSES: - Acute upper respiratory infection, unspecified - Noninfective gastroenteritis and colitis, unspecified - Panic disorder [episodic paroxysmal anxiety] - Diarrhea (Adult) - Emesis - nausea,emesis,dhiarrea 10/28/2024 12:13 [place] TYPE: Emergency COMPLAINT: - ANXIETY DIAGNOSES: - Allergy status to other drugs, medicaments and biological substances - Anxiety disorder, unspecified - Nicotine dependence, unspecified, uncomplicated - 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 - Unspecified asthma, uncomplicated 10/19/2024 02:32 [place] [place] TYPE: Emergency COMPLAINT: - ANXIETY DIAGNOSES: - Allergy status to other drugs, medicaments and biological substances - Anxiety disorder, unspecified - Nausea with vomiting, unspecified - Nicotine dependence, unspecified, uncomplicated - 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
[2025-09-10 13:28] VITALS: BP 140/74
== END 2025-09-10 13:28 | disposition home or self-care (01) ==
LOC: ED 12:10
DX: S30.0XXA Contusion of lower back and pelvis, initial encounter (principal); J45.909 Unspecified asthma, uncomplicated; F17.200 Nicotine dependence, unspecified, uncomplicated; Y04.8XXA Assault by other bodily force, initial encounter; Z79.899 Other long term (current) drug therapy; Z88.8 Allergy status to other drugs, medicaments and biological substances
CPT/HCPCS: 99284